=== PATIENT | female | born 1935 | race Caucasian/White ===

== ENCOUNTER 2016-08-12 14:22 | Emergency (ER) | payer OTHER ==
--- NOTE | 2016-08-12 15:00 | Diag Imaging Result Document ---
PROCEDURE NAME: CHEST-2 VIEWS - 08/12/2016 CHEST, TWO VIEWS: INDICATION: Altered mental status. COMPARISON: 10/27/2015. FINDINGS: The cardiomediastinal silhouette is stable. There are calcified hilar lymph nodes and granulomata. There is pulmonary emphysema. The pulmonary vasculature is not congested. There are no acute infiltrates or effusions. IMPRESSION: Stable chest. No acute abnormalities.
[2016-08-12 15:04] LABS: BE 4.2 mmoll (-3.0-3.0); BLOOD TYPE ARTERIAL; DRAW SITE L RADIAL; METHB 1.3 % (0.0-1.5); O2(CT) 19.2 mL/dL (15.0-23.0); PCO2(98.6) 40 mmHg (35-45); PO2(98.6) 66 mmHg (60-100); SAMPLE BLOOD; THB 14.9 g/dL (11.5-17.4); pH(98.6) 7.46 (7.35-7.45)
[2016-08-12 15:08] LABS: MODALITY CANNULA
[2016-08-12 15:09] LABS: ALLEN TEST YES
[2016-08-12 15:38] LABS: MANUAL DIFF NEEDED? NO
[2016-08-12 15:40] LABS: BASO% 0.3 % (0.0-0.8); EOS# 0.12 X1000 (0.0-0.7); EOS% 1.1 % (0.0-10.0); HEMATOCRIT 42.1 % (37.0-47.0); HEMOGLOBIN 14.5 g/dL (12.0-16.0); IMM GRAN# 0.02 X1000 (0.0-0.04); IMM GRAN% 0.2 % (0.0-0.5); LYMPH# 1.67 X1000 (1.2-3.4); LYMPH% 14.8 % (20.5-51.1); MCH 30.5 PG (27-31); MCHC 34.4 g/dL (33-37); MCV 88.4 FL (81-99); MONO# 0.59 X1000 (0.11-0.59); MONO% 5.2 % (1.7-9.3); MPV 9.8 FL (7.4-10.4); NEUT% 78.4 % (42.2-75.2); PLT 203 X1000 (130-400); RBC 4.76 XMIL (4.2-5.4)
[2016-08-12 15:45] LABS: INR 1.12 (0.86-1.15); PROTIME 14.7 Seconds (12.1-15.5)
[2016-08-12 15:46] LABS: PTT PL 37.9 Seconds (22.6-43.9)
[2016-08-12 15:51] LABS: AGAP 11; ALBUMIN 3.8 g/dL (3.5-5.0); ALKALINE PHOSPHATASE 112 U/L (32-104); BUN 9 mg/dL (8-22); CALCIUM 9.4 mg/dL (8.8-10.2); CHLORIDE 100 mmol/L (98-107); COSMO 273; GOT 15 U/L (10-30); GPT 10 U/L (10-36); POTASSIUM 3.3 mmol/L (3.5-5.1); SODIUM 137 mmol/L (136-145); TCO2 27 mmol/L (25-35); TOTAL PROTEIN 6.6 g/dL (6.3-8.3)
--- NOTE | 2016-08-12 15:55 | PROVIDER DOCUMENTATION ---
HPI-General Adult - General Source: family - History of Present Illness -Gen Adult Nature of Presenting Problems: Pt is 80 y/o F presents to the ED with AMS. Pt's family states Pt has been acting different. Pt's family states Pt has dementia. Pt's family states Pt has been hallucinating. Pt's family states Pt has F. Pt's family states Pt recently started Macrobid. Location of Pain/Injury: reports: generalized Pain Radiation: reports: no radiation Quality of Pain: reports: none Severity: reports: mild Onset/Duration: reports: unsure Timing: reports: still present, intermittent Context/Activities at Onset: reports: light activity Modifying Factors: improves with: nothing Associated Symptoms: denies: anxiety, arm pain, back/neck pain, chest pain, constipation, cough, dizziness, fatigue, fever/chills, genitourinary problems, loss of appetite, muscle aches, sinus congestion/drainage, nausea, shortness of breath, syncope, vomiting, weakness, trouble walking Similar Symptoms Previously?: Yes Recently seen or treated by another doctor?: No <Carmen Parry - Last Filed: 08/12/16 17:15> <Katelyn Boyd - Last Filed: 08/12/16 17:23> - General Chief Complaint: Altered Mental Status Stated Complaint: AMS/FEVER Time Seen by Provider: 08/12/16 15:02 Allergies/Adverse Reactions: Patient Allergies Allergy/AdvReac Type Severity Reaction Status Date / Time morphine AdvReac Unknown Verified 08/12/16 14:44 Home Medications: Carvedilol 3.125 mg PO BID 11/12/14 Oxybutynin Chloride [Oxybutynin Chloride ER] 15 mg PO DAILY 11/12/14 Pravastatin Sodium 40 mg PO QHS 11/12/14 Isosorbide Mononitrate [Isosorbide Mononitrate ER] 30 mg PO DAILY 11/21/14 Quetiapine Fumarate [Seroquel] 25 mg PO QHS 01/28/15 Memantine HCl [Namenda Xr] 21 mg PO DAILY 05/18/15 Rivastigmine Tartrate [Rivastigmine] 1.5 mg PO BID 08/11/15 Escitalopram [Lexapro] 10 mg PO DAILY 08/12/16 Esomeprazole [Nexium] 40 mg PO DAILY 08/12/16 Tramadol [Ultram] 50 mg PO BID 08/12/16 Review of Systems - Adult - REVIEW OF SYSTEMS - ADULT Constitutional: reports: fever. denies: chills Eyes: denies: blurred vision, double vision Ears, Nose, Mouth & Throat: denies: ear pain, nose pain, throat pain Cardiovascular: denies: chest pain, irregular heart rate, palpitations Respiratory: denies: cough, shortness of breath, wheezing Gastrointestinal: denies: abdominal pain, diarrhea, nausea, vomiting Genitourinary: denies: dysuria, hematuria Musculoskeletal: denies: bone pain, joint pain, neck pain Integumentary: denies: hives, itching Neurological: reports: other (AMS). denies: dizziness/vertigo, headache/ migraines Psychiatric: denies: anxiety, alcohol/drug dependence, depression Endocrine: reports: no symptoms reported Hematologic/Lymphatic: reports: no symptoms reported Allergic/Immunologic: reports: no symptoms reported All Other Systems: Reviewed and Negative <Carmen Parry - Last Filed: 08/12/16 17:15> Past History - Adult - PAST MEDICAL HISTORY-ADULT Review of Records: reports: Nursing Assessment Review, Medications Reviewed, Social history reviewed & non-contributory. Major Childhood Illnesses: reports: denies history Cardiovascular: reports: CAD, HTN, hyperlipidemia, PA (x2) Respiratory: reports: COPD Gastrointestinal: reports: GERD Obstetrical/Gynecological: reports: denies history Genitourinary: reports: denies history Musculoskeletal: reports: denies history Neurological: reports: Alzheimer's, dementia Endocrine/Immune: reports: denies history Other Conditions: reports: denies history - PRIOR SURGERIES/PROCEDURES Surgical/Procedure History: reports: cardiac stent (x 2), hysterectomy, hernia repair - IMMUNIZATION STATUS Childhood Immunizations: See Nurse Assessment Flu Vaccine: See Nurse Assessment - FAMILY HISTORY Family History: reviewed, not pertinent - SOCIAL HISTORY Smoking: quit greater than 1 year, cigarettes Provider spent 3-5 mins advising pt. on dangers of tobacco.: Discussed manners to quit use, and f/u contacts for add'l counseling. Substance Use: denies Living Situation: family <Carmen Parry - Last Filed: 08/12/16 17:15> Physical Exam-General - PHYSICAL EXAM-ADULT Initial Vital Signs Reviewed: Yes - CONSTITUTIONAL General Appearance: appears well, alert, no apparent distress - EYES Eyes: PERRL/EOMI, pink conjunctivae - HEAD, EARS, NOSE, MOUTH & THROAT HENMT: normocephalic/atraumatic, moist mucous membranes, normal ENT inspection - NECK Neck: non-tender, full range of motion, supple, normal inspection - RESPIRATORY Respiratory: chest non-tender, lungs clear, normal breath sounds - CARDIOVASCULAR Cardiovascular: normal peripheral pulses, regular rate, rhythm, no edema - GASTROINTESTINAL (ABDOMEN) Abdominal Exam: normal bowel sounds, non tender, soft - LYMPHATIC Lymphatic: no adenopathy - MUSCULOSKELETAL Back Exam: normal inspection, no CVA tenderness, no vertebral tenderness Extremity: normal range of motion, non-tender, normal gait - SKIN Integumentary: normal color, normal turgor, warm/dry - PSYCHIATRIC Psych/Mental Status: normal mood/affect, normal thought content, normal thought process, oriented x 3 <Carmen Parry - Last Filed: 08/12/16 17:15> Progress - PLAN OF CARE/RESULTS Progress/Plan/Lab Results: Laboratory Tests 08/12/16 08/12/16 08/12/16 14:50 15:00 15:00 WBC RBC Hgb Hct MCV MCH MCHC RDW Std Deviation Plt Count MPV Immature Gran % (Auto) Neut % (Auto) Lymph % (Auto) Andrews % (Auto) Eos % (Auto) Baso % (Auto) Immature Gran # (Auto) Neut # (Auto) Lymph # (Auto) Andrews # (Auto) Eos # (Auto) Baso # (Auto) PT INR APTT (Factor Assay) Specimen Type ARTERIAL Sample Site L RADIAL pH 7.46 H pCO2 40 pO2 66 HCO3 28.0 H Base Excess 4.2 H Oxyhemoglobin 91.9 L ABG O2 Sat (Calculated) 19.2 ABG O2 Saturation 96.0 ABG Carboxyhemoglobin 3.00 H ABG Methemoglobin 1.3 Oliver Test YES A-a O2 Difference 84.0 Total Hemoglobin 14.9 Lactate 1.00 Liter Flow 2.0 Blood Gas Modality CANNULA FiO2 % 28.0 Sodium 137 Potassium 3.3 L Chloride 100 Carbon Dioxide 27 Anion Gap 11 BUN 9 Creatinine 0.7 Estimated GFR/1.73 m2 > 60 BUN/Creatinine Ratio 13 Glucose 103 Calculated Osmolality 273 Calcium 9.4 Total Bilirubin 0.60 AST 15 ALT 10 Alkaline Phosphatase 112 H Troponin T < 0.010 Total Protein 6.6 Albumin 3.8 Globulin 3.0 Albumin/Globulin Ratio 1.0 Plasma/Serum Ethyl Alc 08/12/16 08/12/16 08/12/16 15:00 15:00 15:00 WBC 11.31 H RBC 4.76 Hgb 14.5 Hct 42.1 MCV 88.4 MCH 30.5 MCHC 34.4 RDW Std Deviation 13.1 Plt Count 203 MPV 9.8 Immature Gran % (Auto) 0.2 Neut % (Auto) 78.4 H Lymph % (Auto) 14.8 L Andrews % (Auto) 5.2 Eos % (Auto) 1.1 Baso % (Auto) 0.3 Immature Gran # (Auto) 0.02 Neut # (Auto) 8.88 H Lymph # (Auto) 1.67 Andrews # (Auto) 0.59 Eos # (Auto) 0.12 Baso # (Auto) 0.03 PT 14.7 INR 1.12 APTT (Factor Assay) 37.9 Specimen Type Sample Site pH pCO2 pO2 HCO3 Base Excess Oxyhemoglobin ABG O2 Sat (Calculated) ABG O2 Saturation ABG Carboxyhemoglobin ABG Methemoglobin Oliver Test A-a O2 Difference Total Hemoglobin Lactate Liter Flow Blood Gas Modality FiO2 % Sodium Potassium Chloride Carbon Dioxide Anion Gap BUN Creatinine Estimated GFR/1.73 m2 BUN/Creatinine Ratio Glucose Calculated Osmolality Calcium Total Bilirubin AST ALT Alkaline Phosphatase Troponin T Total Protein Albumin Globulin Albumin/Globulin Ratio Plasma/Serum Ethyl Alc Orders Category Date Time Status Cardiac Monitoring DIRECTED Care 08/12/16 14:28 Active Finger Stick Blood Sugar (ED) DIRECTED Care 08/12/16 14:28 Active Oxygen Therapy- ED Nursing DIRECTED Care 08/12/16 14:28 Active Saline Loc NOW Care 08/12/16 14:28 Active CHEST-2 VIEWS [RAD] Stat Exams 08/12/16 14:28 Draft ABG [RESP] Routine Lab 08/12/16 14:50 Completed ALCOHOL BLOOD Stat Lab 08/12/16 15:00 Completed CBC WITH ELECTRONIC DIFF [HEME] Stat Lab 08/12/16 15:00 Completed COMPREHENSIVE METABOLIC PANEL [CHEM] Stat Lab 08/12/16 15:00 Completed LACTATE, PLASMA [CHEM] Stat Lab 08/12/16 15:00 Received PR[address]IME WITH INR PL [COAG] Stat Lab 08/12/16 15:[address] [COAG] Stat Lab 08/12/16 15:00 Completed TROPONIN T Stat Lab 08/12/16 15:[address] W/POSS RFLX CULT [URINALYSIS] Stat Lab 08/12/16 14:32 Ordered URINE DRUG SCREEN PL Stat Lab 08/12/16 14:32 Ordered Pulse Oximetry Stat Oth 08/12/16 14:28 Active EKG [EKG] Stat Ther 08/12/16 14:28 Ordered Vital Signs - 24 hr 08/12/16 14:39 Temperature 100.2 F H Pulse Rate 73 Respiratory 18 Rate Blood Pressure 127/059 O2 Sat by Pulse 97 Oximetry Laboratory Tests 08/12/16 08/12/16 08/12/16 14:32 14:50 15:00 WBC RBC Hgb Hct MCV MCH MCHC RDW Std Deviation Plt Count MPV Immature Gran % (Auto) Neut % (Auto) Lymph % (Auto) Andrews % (Auto) Eos % (Auto) Baso % (Auto) Immature Gran # (Auto) Neut # (Auto) Lymph # (Auto) Andrews # (Auto) Eos # (Auto) Baso # (Auto) PT INR APTT (Factor Assay) Specimen Type ARTERIAL Sample Site L RADIAL pH 7.46 H pCO2 40 pO2 66 HCO3 28.0 H Base Excess 4.2 H Oxyhemoglobin 91.9 L ABG O2 Sat (Calculated) 19.2 ABG O2 Saturation 96.0 ABG Carboxyhemoglobin 3.00 H ABG Methemoglobin 1.3 Oliver Test YES A-a O2 Difference 84.0 Total Hemoglobin 14.9 Lactate 1.00 Liter Flow 2.0 Blood Gas Modality CANNULA FiO2 % 28.0 Sodium 137 Potassium 3.3 L Chloride 100 Carbon Dioxide 27 Anion Gap 11 BUN 9 Creatinine 0.7 Estimated GFR/1.73 m2 > 60 BUN/Creatinine Ratio 13 Glucose 103 Calculated Osmolality 273 Calcium 9.4 Total Bilirubin 0.60 AST 15 ALT 10 Alkaline Phosphatase 112 H Troponin T Total Protein 6.6 Albumin 3.8 Globulin 3.0 Albumin/Globulin Ratio 1.0 Plasma Lactate Urine Source Urine Color Urine Clarity Urine pH Ur Specific [place] Urine Protein Urine Ketones Urine Blood Urine Nitrite Urine Bilirubin Urine Urobilinogen Urine Microscopic RBC Urine WBC Urine Microscopic WBC Ur Epithelial Cells Urine Bacteria Urine Glucose Urine Opiates Screen NONE DETECTED Ur Oxycodone Screen NONE DETECTED Urine Methadone Screen NONE DETECTED Ur Barbituates Screen NONE DETECTED Ur Tricyclics Screen NONE DETECTED Ur Phencyclidine Scrn NONE DETECTED Ur Amphetamines Screen NONE DETECTED U Methamphetamines Scrn NONE DETECTED Urine MDMA Screen NONE DETECTED U Benzodiazepines Scrn PRESUMPTIVE POSITIVE A Urine Cocaine Screen NONE DETECTED U Cannabinoids Screen NONE DETECTED Plasma/Serum Ethyl Alc 08/12/16 08/12/16 08/12/16 15:00 15:00 15:00 WBC RBC Hgb Hct MCV MCH MCHC RDW Std Deviation Plt Count MPV Immature Gran % (Auto) Neut % (Auto) Lymph % (Auto) Andrews % (Auto) Eos % (Auto) Baso % (Auto) Immature Gran # (Auto) Neut # (Auto) Lymph # (Auto) Andrews # (Auto) Eos # (Auto) Baso # (Auto) PT INR APTT (Factor Assay) Specimen Type Sample Site pH pCO2 pO2 HCO3 Base Excess Oxyhemoglobin ABG O2 Sat (Calculated) ABG O2 Saturation ABG Carboxyhemoglobin ABG Methemoglobin Oliver Test A-a O2 Difference Total Hemoglobin Lactate Liter Flow Blood Gas Modality FiO2 % Sodium Potassium Chloride Carbon Dioxide Anion Gap BUN Creatinine Estimated GFR/1.73 m2 BUN/Creatinine Ratio Glucose Calculated Osmolality Calcium Total Bilirubin AST ALT Alkaline Phosphatase Troponin T < 0.010 Total Protein Albumin Globulin Albumin/Globulin Ratio Plasma Lactate 1.1 Urine Source Urine Color Urine Clarity Urine pH Ur Specific [place] Urine Protein Urine Ketones Urine Blood Urine Nitrite Urine Bilirubin Urine Urobilinogen Urine Microscopic RBC Urine WBC Urine Microscopic WBC Ur Epithelial Cells Urine Bacteria Urine Glucose Urine Opiates Screen Ur Oxycodone Screen Urine Methadone Screen Ur Barbituates Screen Ur Tricyclics Screen Ur Phencyclidine Scrn Ur Amphetamines Screen U Methamphetamines Scrn Urine MDMA Screen U Benzodiazepines Scrn Urine Cocaine Screen U Cannabinoids Screen Plasma/Serum Ethyl Alc 08/12/16 08/12/16 08/12/16 15:00 15:00 16:20 WBC 11.31 H RBC 4.76 Hgb 14.5 Hct 42.1 MCV 88.4 MCH 30.5 MCHC 34.4 RDW Std Deviation 13.1 Plt Count 203 MPV 9.8 Immature Gran % (Auto) 0.2 Neut % (Auto) 78.4 H Lymph % (Auto) 14.8 L Andrews % (Auto) 5.2 Eos % (Auto) 1.1 Baso % (Auto) 0.3 Immature Gran # (Auto) 0.02 Neut # (Auto) 8.88 H Lymph # (Auto) 1.67 Andrews # (Auto) 0.59 Eos # (Auto) 0.12 Baso # (Auto) 0.03 PT 14.7 INR 1.12 APTT (Factor Assay) 37.9 Specimen Type Sample Site pH pCO2 pO2 HCO3 Base Excess Oxyhemoglobin ABG O2 Sat (Calculated) ABG O2 Saturation ABG Carboxyhemoglobin ABG Methemoglobin Oliver Test A-a O2 Difference Total Hemoglobin Lactate Liter Flow Blood Gas Modality FiO2 % Sodium Potassium Chloride Carbon Dioxide Anion Gap BUN Creatinine Estimated GFR/1.73 m2 BUN/Creatinine Ratio Glucose Calculated Osmolality Calcium Total Bilirubin AST ALT Alkaline Phosphatase Troponin T Total Protein Albumin Globulin Albumin/Globulin Ratio Plasma Lactate Urine Source CATH Urine Color BAYLEE Urine Clarity SLIGHTLY CLOUDY A Urine pH 6.5 Ur Specific [place] 1.010 Urine Protein TRACE A Urine Ketones TRACE Urine Blood TRACE Urine Nitrite NEGATIVE Urine Bilirubin NEGATIVE Urine Urobilinogen NORMAL Urine Microscopic RBC <10 Urine WBC 2+ A Urine Microscopic WBC 10-20 A Ur Epithelial Cells <10 Urine Bacteria 2+ Urine Glucose NEGATIVE Urine Opiates Screen Ur Oxycodone Screen Urine Methadone Screen Ur Barbituates Screen Ur Tricyclics Screen Ur Phencyclidine Scrn Ur Amphetamines Screen U Methamphetamines Scrn Urine MDMA Screen U Benzodiazepines Scrn Urine Cocaine Screen U Cannabinoids Screen Plasma/Serum Ethyl Alc - XRAY 1 XRAY: Bilateral XRAY Study: Chest Impression: Normal XRAY Interpretation: no acute disease <Carmen Parry - Last Filed: 08/12/16 17:15> - PLAN OF CARE/RESULTS Progress/Plan/Lab Results: Discussed results and plan of care with patient. Patient agrees with plan and verbalizes understanding. Vital Signs Temp Pulse Resp BP Pulse Ox 08/12/16 14:39 100.2 F H 73 18 127/059 97 morphine Adverse Reaction (Verified 08/12/16 14:44) Unknown Carvedilol 3.125 mg PO BID 11/12/14 Oxybutynin Chloride [Oxybutynin Chloride ER] 15 mg PO DAILY 11/12/14 Pravastatin Sodium 40 mg PO QHS 11/12/14 Isosorbide Mononitrate [Isosorbide Mononitrate ER] 30 mg PO DAILY 11/21/14 Quetiapine Fumarate [Seroquel] 25 mg PO QHS 01/28/15 Memantine HCl [Namenda Xr] 21 mg PO DAILY 05/18/15 Acetaminophen [Tylenol] 500 mg PO Q6H PRN PRN #30 tablet 08/05/15 Rivastigmine Tartrate [Rivastigmine] 1.5 mg PO BID 08/11/15 Polyethylene Glycol 3350 [Miralax] 17 gm PO DAILY #30 powd.pack 08/14/15 Sennosides/Docusate Sodium [Senokot-S Tablet] 1 each PO QHS #30 tablet 08/14/15 Alprazolam [Xanax] 0.25 mg PO TID #90 tablet 11/02/15 Amlodipine [Norvasc] 10 mg PO DAILY #30 tablet 11/02/15 LISINOpril/HCTZ [Prinzide 20/12.5MG] 1 each PO DAILY #30 tablet 11/02/15 Oxycodone HCl/Acetaminophen [Oxycodone-Acetaminophen 5-325] 1 each PO Q6H PRN PRN #40 tablet 11/02/15 Rivaroxaban [Xarelto] 10 mg PO DAILY #35 tablet 11/02/15 Escitalopram [Lexapro] 10 mg PO DAILY 08/12/16 Esomeprazole [Nexium] 40 mg PO DAILY 08/12/16 Tramadol [Ultram] 50 mg PO BID 08/12/16 Laboratory 08/12/16 08/12/16 08/12/16 16:20 15:00 15:00 WBC 11.31 H RBC 4.76 Hgb 14.5 Hct 42.1 MCV 88.4 MCH 30.5 MCHC 34.4 RDW Std Deviation 13.1 Plt Count 203 MPV 9.8 Immature Gran % (Auto) 0.2 Neut % (Auto) 78.4 H Lymph % (Auto) 14.8 L Andrews % (Auto) 5.2 Eos % (Auto) 1.1 Baso % (Auto) 0.3 Immature Gran # (Auto) 0.02 Neut # (Auto) 8.88 H Lymph # (Auto) 1.67 Andrews # (Auto) 0.59 Eos # (Auto) 0.12 Baso # (Auto) 0.03 PT 14.7 INR 1.12 APTT (Factor Assay) 37.9 Specimen Type Sample Site pH pCO2 pO2 HCO3 Base Excess Oxyhemoglobin ABG O2 Sat (Calculated) ABG O2 Saturation ABG Carboxyhemoglobin ABG Methemoglobin Oliver Test A-a O2 Difference Total Hemoglobin Lactate Liter Flow Blood Gas Modality FiO2 % Sodium Potassium Chloride Carbon Dioxide Anion Gap BUN Creatinine Estimated GFR/1.73 m2 BUN/Creatinine Ratio Glucose Calculated Osmolality Calcium Total Bilirubin AST ALT Alkaline Phosphatase Troponin T Total Protein Albumin Globulin Albumin/Globulin Ratio Plasma Lactate Urine Source CATH Urine Color BAYLEE Urine Clarity SLIGHTLY CLOUDY A Urine pH 6.5 Ur Specific [place] 1.010 Urine Protein TRACE A Urine Ketones TRACE Urine Blood TRACE Urine Nitrite NEGATIVE Urine Bilirubin NEGATIVE Urine Urobilinogen NORMAL Urine Microscopic RBC <10 Urine WBC 2+ A Urine Microscopic WBC 10-20 A Ur Epithelial Cells <10 Urine Bacteria 2+ Urine Glucose NEGATIVE Urine Opiates Screen Ur Oxycodone Screen Urine Methadone Screen Ur Barbituates Screen Ur Tricyclics Screen Ur Phencyclidine Scrn Ur Amphetamines Screen U Methamphetamines Scrn Urine MDMA Screen U Benzodiazepines Scrn Urine Cocaine Screen U Cannabinoids Screen Plasma/Serum Ethyl Alc 08/12/16 08/12/16 08/12/16 15:00 15:00 15:00 WBC RBC Hgb Hct MCV MCH MCHC RDW Std Deviation Plt Count MPV Immature Gran % (Auto) Neut % (Auto) Lymph % (Auto) Andrews % (Auto) Eos % (Auto) Baso % (Auto) Immature Gran # (Auto) Neut # (Auto) Lymph # (Auto) Andrews # (Auto) Eos # (Auto) Baso # (Auto) PT INR APTT (Factor Assay) Specimen Type Sample Site pH pCO2 pO2 HCO3 Base Excess Oxyhemoglobin ABG O2 Sat (Calculated) ABG O2 Saturation ABG Carboxyhemoglobin ABG Methemoglobin Oliver Test A-a O2 Difference Total Hemoglobin Lactate Liter Flow Blood Gas Modality FiO2 % Sodium Potassium Chloride Carbon Dioxide Anion Gap BUN Creatinine Estimated GFR/1.73 m2 BUN/Creatinine Ratio Glucose Calculated Osmolality Calcium Total Bilirubin AST ALT Alkaline Phosphatase Troponin T < 0.010 Total Protein Albumin Globulin Albumin/Globulin Ratio Plasma Lactate 1.1 Urine Source Urine Color Urine Clarity Urine pH Ur Specific [place] Urine Protein Urine Ketones Urine Blood Urine Nitrite Urine Bilirubin Urine Urobilinogen Urine Microscopic RBC Urine WBC Urine Microscopic WBC Ur Epithelial Cells Urine Bacteria Urine Glucose Urine Opiates Screen Ur Oxycodone Screen Urine Methadone Screen Ur Barbituates Screen Ur Tricyclics Screen Ur Phencyclidine Scrn Ur Amphetamines Screen U Methamphetamines Scrn Urine MDMA Screen U Benzodiazepines Scrn Urine Cocaine Screen U Cannabinoids Screen Plasma/Serum Ethyl Alc 08/12/16 08/12/16 08/12/16 15:00 14:50 14:32 WBC RBC Hgb Hct MCV MCH MCHC RDW Std Deviation Plt Count MPV Immature Gran % (Auto) Neut % (Auto) Lymph % (Auto) Andrews % (Auto) Eos % (Auto) Baso % (Auto) Immature Gran # (Auto) Neut # (Auto) Lymph # (Auto) Andrews # (Auto) Eos # (Auto) Baso # (Auto) PT INR APTT (Factor Assay) Specimen Type ARTERIAL Sample Site L RADIAL pH 7.46 H pCO2 40 pO2 66 HCO3 28.0 H Base Excess 4.2 H Oxyhemoglobin 91.9 L ABG O2 Sat (Calculated) 19.2 ABG O2 Saturation 96.0 ABG Carboxyhemoglobin 3.00 H ABG Methemoglobin 1.3 Oliver Test YES A-a O2 Difference 84.0 Total Hemoglobin 14.9 Lactate 1.00 Liter Flow 2.0 Blood Gas Modality CANNULA FiO2 % 28.0 Sodium 137 Potassium 3.3 L Chloride 100 Carbon Dioxide 27 Anion Gap 11 BUN 9 Creatinine 0.7 Estimated GFR/1.73 m2 > 60 BUN/Creatinine Ratio 13 Glucose 103 Calculated Osmolality 273 Calcium 9.4 Total Bilirubin 0.60 AST 15 ALT 10 Alkaline Phosphatase 112 H Troponin T Total Protein 6.6 Albumin 3.8 Globulin 3.0 Albumin/Globulin Ratio 1.0 Plasma Lactate Urine Source Urine Color Urine Clarity Urine pH Ur Specific [place] Urine Protein Urine Ketones Urine Blood Urine Nitrite Urine Bilirubin Urine Urobilinogen Urine Microscopic RBC Urine WBC Urine Microscopic WBC Ur Epithelial Cells Urine Bacteria Urine Glucose Urine Opiates Screen NONE DETECTED Ur Oxycodone Screen NONE DETECTED Urine Methadone Screen NONE DETECTED Ur Barbituates Screen NONE DETECTED Ur Tricyclics Screen NONE DETECTED Ur Phencyclidine Scrn NONE DETECTED Ur Amphetamines Screen NONE DETECTED U Methamphetamines Scrn NONE DETECTED Urine MDMA Screen NONE DETECTED U Benzodiazepines Scrn PRESUMPTIVE POSITIVE A Urine Cocaine Screen NONE DETECTED U Cannabinoids Screen NONE DETECTED Plasma/Serum Ethyl Alc Orders Category Date Time Status Cardiac Monitoring DIRECTED Care 08/12/16 14:28 Active Finger Stick Blood Sugar (ED) DIRECTED Care 08/12/16 14:28 Active Oxygen Therapy- ED Nursing DIRECTED Care 08/12/16 14:28 Active Saline Loc NOW Care 08/12/16 14:28 Active CHEST-2 VIEWS [RAD] Stat Exams 08/12/16 14:28 Draft ABG [RESP] Routine Lab 08/12/16 14:50 Completed ALCOHOL BLOOD Stat Lab 08/12/16 15:00 Completed CBC WITH ELECTRONIC DIFF [HEME] Stat Lab 08/12/16 15:00 Completed COMPREHENSIVE METABOLIC PANEL [CHEM] Stat Lab 08/12/16 15:00 Completed LACTATE, PLASMA [CHEM] Stat Lab 08/12/16 15:00 Completed PR[address]IME WITH INR PL [COAG] Stat Lab 08/12/16 15:[address] [COAG] Stat Lab 08/12/16 15:00 Completed TROPONIN T Stat Lab 08/12/16 15:[address] W/POSS RFLX CULT [URINALYSIS] Stat Lab 08/12/16 16:20 Completed URINE CULTURE [RM] Routine Lab 08/12/16 17:08 [address]INE DRUG SCREEN PL Stat Lab 08/12/16 14:32 Completed CefTRIAXONE 1 GM/NS [Rocephin 1 gm/Ns] 50 ml Med 08/12/16 17:21 Active IV NOW Pulse Oximetry Stat Oth 08/12/16 14:28 Active EKG [EKG] Stat Ther 08/12/16 14:28 Ordered Laboratory Tests 08/12/16 08/12/16 08/12/16 14:32 14:50 15:00 WBC RBC Hgb Hct MCV MCH MCHC RDW Std Deviation Plt Count MPV Immature Gran % (Auto) Neut % (Auto) Lymph % (Auto) Andrews % (Auto) Eos % (Auto) Baso % (Auto) Immature Gran # (Auto) Neut # (Auto) Lymph # (Auto) Andrews # (Auto) Eos # (Auto) Baso # (Auto) PT INR APTT (Factor Assay) Specimen Type ARTERIAL Sample Site L RADIAL pH 7.46 H pCO2 40 pO2 66 HCO3 28.0 H Base Excess 4.2 H Oxyhemoglobin 91.9 L ABG O2 Sat (Calculated) 19.2 ABG O2 Saturation 96.0 ABG Carboxyhemoglobin 3.00 H ABG Methemoglobin 1.3 Oliver Test YES A-a O2 Difference 84.0 Total Hemoglobin 14.9 Lactate 1.00 Liter Flow 2.0 Blood Gas Modality CANNULA FiO2 % 28.0 Sodium 137 Potassium 3.3 L Chloride 100 Carbon Dioxide 27 Anion Gap 11 BUN 9 Creatinine 0.7 Estimated GFR/1.73 m2 > 60 BUN/Creatinine Ratio 13 Glucose 103 Calculated Osmolality 273 Calcium 9.4 Total Bilirubin 0.60 AST 15 ALT 10 Alkaline Phosphatase 112 H Troponin T Total Protein 6.6 Albumin 3.8 Globulin 3.0 Albumin/Globulin Ratio 1.0 Plasma Lactate Urine Source Urine Color Urine Clarity Urine pH Ur Specific [place] Urine Protein Urine Ketones Urine Blood Urine Nitrite Urine Bilirubin Urine Urobilinogen Urine Microscopic RBC Urine WBC Urine Microscopic WBC Ur Epithelial Cells Urine Bacteria Urine Glucose Urine Opiates Screen NONE DETECTED Ur Oxycodone Screen NONE DETECTED Urine Methadone Screen NONE DETECTED Ur Barbituates Screen NONE DETECTED Ur Tricyclics Screen NONE DETECTED Ur Phencyclidine Scrn NONE DETECTED Ur Amphetamines Screen NONE DETECTED U Methamphetamines Scrn NONE DETECTED Urine MDMA Screen NONE DETECTED U Benzodiazepines Scrn PRESUMPTIVE POSITIVE A Urine Cocaine Screen NONE DETECTED U Cannabinoids Screen NONE DETECTED Plasma/Serum Ethyl Alc 08/12/16 08/12/16 08/12/16 15:00 15:00 15:00 WBC RBC Hgb Hct MCV MCH MCHC RDW Std Deviation Plt Count MPV Immature Gran % (Auto) Neut % (Auto) Lymph % (Auto) Andrews % (Auto) Eos % (Auto) Baso % (Auto) Immature Gran # (Auto) Neut # (Auto) Lymph # (Auto) Andrews # (Auto) Eos # (Auto) Baso # (Auto) PT INR APTT (Factor Assay) Specimen Type Sample Site pH pCO2 pO2 HCO3 Base Excess Oxyhemoglobin ABG O2 Sat (Calculated) ABG O2 Saturation ABG Carboxyhemoglobin ABG Methemoglobin Oliver Test A-a O2 Difference Total Hemoglobin Lactate Liter Flow Blood Gas Modality FiO2 % Sodium Potassium Chloride Carbon Dioxide Anion Gap BUN Creatinine Estimated GFR/1.73 m2 BUN/Creatinine Ratio Glucose Calculated Osmolality Calcium Total Bilirubin AST ALT Alkaline Phosphatase Troponin T < 0.010 Total Protein Albumin Globulin Albumin/Globulin Ratio Plasma Lactate 1.1 Urine Source Urine Color Urine Clarity Urine pH Ur Specific [place] Urine Protein Urine Ketones Urine Blood Urine Nitrite Urine Bilirubin Urine Urobilinogen Urine Microscopic RBC Urine WBC Urine Microscopic WBC Ur Epithelial Cells Urine Bacteria Urine Glucose Urine Opiates Screen Ur Oxycodone Screen Urine Methadone Screen Ur Barbituates Screen Ur Tricyclics Screen Ur Phencyclidine Scrn Ur Amphetamines Screen U Methamphetamines Scrn Urine MDMA Screen U Benzodiazepines Scrn Urine Cocaine Screen U Cannabinoids Screen Plasma/Serum Ethyl Alc 08/12/16 08/12/16 08/12/16 15:00 15:00 16:20 WBC 11.31 H RBC 4.76 Hgb 14.5 Hct 42.1 MCV 88.4 MCH 30.5 MCHC 34.4 RDW Std Deviation 13.1 Plt Count 203 MPV 9.8 Immature Gran % (Auto) 0.2 Neut % (Auto) 78.4 H Lymph % (Auto) 14.8 L Andrews % (Auto) 5.2 Eos % (Auto) 1.1 Baso % (Auto) 0.3 Immature Gran # (Auto) 0.02 Neut # (Auto) 8.88 H Lymph # (Auto) 1.67 Andrews # (Auto) 0.59 Eos # (Auto) 0.12 Baso # (Auto) 0.03 PT 14.7 INR 1.12 APTT (Factor Assay) 37.9 Specimen Type Sample Site pH pCO2 pO2 HCO3 Base Excess Oxyhemoglobin ABG O2 Sat (Calculated) ABG O2 Saturation ABG Carboxyhemoglobin ABG Methemoglobin Oliver Test A-a O2 Difference Total Hemoglobin Lactate Liter Flow Blood Gas Modality FiO2 % Sodium Potassium Chloride Carbon Dioxide Anion Gap BUN Creatinine Estimated GFR/1.73 m2 BUN/Creatinine Ratio Glucose Calculated Osmolality Calcium Total Bilirubin AST ALT Alkaline Phosphatase Troponin T Total Protein Albumin Globulin Albumin/Globulin Ratio Plasma Lactate Urine Source CATH Urine Color BAYLEE Urine Clarity SLIGHTLY CLOUDY A Urine pH 6.5 Ur Specific Ironside 1.010 Urine Protein TRACE A Urine Ketones TRACE Urine Blood TRACE Urine Nitrite NEGATIVE Urine Bilirubin NEGATIVE Urine Urobilinogen NORMAL Urine Microscopic RBC <10 Urine WBC 2+ A Urine Microscopic WBC 10-20 A Ur Epithelial Cells <10 Urine Bacteria 2+ Urine Glucose NEGATIVE Urine Opiates Screen Ur Oxycodone Screen Urine Methadone Screen Ur Barbituates Screen Ur Tricyclics Screen Ur Phencyclidine Scrn Ur Amphetamines Screen U Methamphetamines Scrn Urine MDMA Screen U Benzodiazepines Scrn Urine Cocaine Screen U Cannabinoids Screen Plasma/Serum Ethyl Alc <Katelyn Boyd - Last Filed: 08/12/16 17:23> Departure <Carmen Parry - Last Filed: 08/12/16 17:15> - Departure Time of Disposition Order: 17:21 Certified Medical Emergency: Emergent <Katelyn Boyd - Last Filed: 08/12/16 17:23> - Departure DIAGNOSIS: UTI (urinary tract infection) Qualifiers: Urinary tract infection type: acute cystitis Hematuria presence: without hematuria Qualified Code(s): N30.00 - Acute cystitis without hematuria Disposition: HOME 01 Condition: Stable Additional Instructions: Follow up with primary care physician Take medications as directed Return to ED for any concerns or worsening of symptoms ED Follow Up Instructions: You have been treated by a care provider in the Emergency Department. These instructions are being provided to you so you can have an understanding of how to care for yourself upon discharge. Upon discharge from the Emergency Department, you are responsible for making arrangements for follow-up care by a physician of your choice. Take all prescribed medications as directed. Return to the Emergency Department immediately for any new or worsening symptoms. You may call the Physician Referral phone number at [phone] to obtain a list of Physicians who are taking new patients. Prescriptions: Sulfamethoxazole/Trimethoprim [Bactrim Ds Tablet] 1 each PO BID #14 tablet Referrals: Julia Jones CRNP [Primary Care Provider] - Attestation - Scribe Verification/Attestation Scribe:: Carmen Parry Acting as Scribe for:: Ricardo Velez Scribe documention review:: This chart was documented by a scribe and accurately reflects the service the provider performed and the decisions made by the provider. <Carmen Parry - Last Filed: 08/12/16 17:15> - Physician/ Mid-level Attestation Patient care was provided by Mid-level provider ([employer]/PA):: Yes Mid-level provider:: Katelyn Boyd Mid-level documentation review:: The Mid-level provider documentation, treatment plan and medical decision making was reviewed by the physician who agrees with all treatment and medical decision making by the MLP. The physician spent face to face time with patient:: Yes <Katelyn Boyd - Last Filed: 08/12/16 17:23> Physician Attestation
[2016-08-12 16:29] LABS: URINE SOURCE CATH
[2016-08-12 16:36] LABS: UR AMPHETAMINES QUAL NONE DETECTED (NONE DETECT); UR BARBITUATES QUAL NONE DETECTED (NONE DETECT); UR BENZODIAZEPIN QUAL PRESUMPTIVE POSITIVE (NONE DETECT); UR CANNABINOIDS QUAL NONE DETECTED (NONE DETECT); UR COCAINE QUAL NONE DETECTED (NONE DETECT); UR MDMA QUAL NONE DETECTED (NONE DETECT); UR METHADONE QUAL NONE DETECTED (NONE DETECT); UR METHAMPHETAMINE QUAL NONE DETECTED (NONE DETECT); UR OPIATES QUAL NONE DETECTED (NONE DETECT); UR OXYCODONE QUAL NONE DETECTED (NONE DETECT); UR PCP QUAL NONE DETECTED (NONE DETECT); UR TCA QUAL NONE DETECTED (NONE DETECT)
[2016-08-12 17:05] LABS: BILIRUBIN URINE NEGATIVE (NEGATIVE); BLOOD URINE TRACE (NEGATIVE); CLARITY SLIGHTLY CLOUDY (CLEAR); COLOR AMBER; GLUCOSE URINE NEGATIVE (NEGATIVE); LEUKOCYTES URINE 2+ (NEGATIVE); NITRITE URINE NEGATIVE (NEGATIVE); PH URINE 6.5; PROTEIN URINE TRACE mg/dL (NEGATIVE); UROBILINOGEN URINE NORMAL
[2016-08-12 17:07] LABS: URINE RBC <10 /HPF (<10)
[2016-08-12 17:08] LABS: URINE CULTURE PL NEEDED? YES; URINE EPITHELIAL CELLS <10 /HPF (<10)
[2016-08-12] MEDS ORDERED: ROCEPHIN 1 GM/NS 50 ML IV ONE (17:21)
[2016-08-12] MEDS ORDERED: TYLENOL PO ONE (17:23)
[2016-08-12 17:57] VITALS: BP 153/065
== END 2016-08-12 19:00 | disposition home or self-care (01) ==
LOC: P.ED 14:22
DX: N30.00 Acute cystitis without hematuria (principal); R41.82 Altered mental status, unspecified; R50.9 Fever, unspecified; I25.10 Atherosclerotic heart disease of native coronary artery without angina pectoris; I10 Essential (primary) hypertension; E78.5 Hyperlipidemia, unspecified; I25.2 Old myocardial infarction; J44.9 Chronic obstructive pulmonary disease, unspecified; Z79.899 Other long term (current) drug therapy; K21.9 Gastro-esophageal reflux disease without esophagitis; G30.9 Alzheimer's disease, unspecified; F02.80 Dementia in other diseases classified elsewhere, unspecified severity, without behavioral disturbance, psychotic disturbance, mood disturbance, and anxiety; Z95.5 Presence of coronary angioplasty implant and graft; Z87.891 Personal history of nicotine dependence
CPT/HCPCS: 71020; 80053; 81001; 82805; 83605; 84484; 85025; 85610; 85730; 87088; 93005; 96365; G0480; J0696

== ENCOUNTER 2016-12-12 09:10 | Inpatient (IN) ==
[2016-12-12] MEDS ORDERED: TYLENOL ONE (10:15)
[2016-12-12] MEDS ORDERED: TYLENOL PO ONE (10:20)
[2016-12-12 10:30] LABS: BILIRUBIN URINE NEGATIVE (NEGATIVE); BLOOD URINE 1+ (NEGATIVE); CLARITY CLEAR (CLEAR); COLOR YELLOW; GLUCOSE URINE NEGATIVE (NEGATIVE); LEUKOCYTES URINE 2+ (NEGATIVE); NITRITE URINE NEGATIVE (NEGATIVE); PROTEIN URINE TRACE mg/dL (NEGATIVE); SP GRAVITY URINE 1.015; UROBILINOGEN URINE NORMAL
[2016-12-12 10:39] LABS: URINE EPITHELIAL CELLS <10 /HPF (<10); URINE RBC <10 /HPF (<10); URINE WBC 20-40 /HPF (<10)
[2016-12-12 10:40] LABS: URINE CAST NONE SEEN /LPF; URINE CRYSTAL NONE SEEN /HPF; URINE CULTURE PL NEEDED? YES; URINE SMALL ROUND CELLS RENAL PRESENT; URINE SOURCE CLEAN CATCH
[2016-12-12 10:45] LABS: MANUAL DIFF NEEDED? NO
[2016-12-12 10:47] LABS: BASO% 0.2 % (0.0-0.8); EOS# 0.09 X1000 (0.0-0.7); EOS% 0.8 % (0.0-10.0); HEMATOCRIT 38.1 % (37.0-47.0); IMM GRAN# 0.02 X1000 (0.0-0.04); IMM GRAN% 0.2 % (0.0-0.5); LYMPH# 1.41 X1000 (1.2-3.4); LYMPH% 11.8 % (20.5-51.1); MCH 30.1 PG (27-31); MCHC 34.1 g/dL (33-37); MCV 88.2 FL (81-99); MONO# 1.47 X1000 (0.11-0.59); MONO% 12.4 % (1.7-9.3); MPV 9.2 FL (7.4-10.4); NEUT% 74.6 % (42.2-75.2); PLT 205 X1000 (130-400); RBC 4.32 XMIL (4.2-5.4)
--- NOTE | 2016-12-12 11:03 | Diag Imaging Result Document ---
PROCEDURE NAME: CHEST-2 VIEWS - 12/12/2016 FRONTAL AND LATERAL CHEST, TWO VIEWS: COMPARISON: 08/27/2016. FINDINGS: The lungs are mildly hyperexpanded. The heart is not enlarged. The vessels are not distended. No pleural effusions. Mild increased markings in the right lung. There are small calcified left hilar lymph nodes with calcified granulomata in the mid left lung. IMPRESSION: 1. Emphysema. 2. Small infiltrate in the mid right lung. 3. Prior granulomatous infection.
[2016-12-12 11:04] LABS: AGAP 14; ALBUMIN 3.8 g/dL (3.5-5.0); ALKALINE PHOSPHATASE 98 U/L (32-104); BUN 15 mg/dL (8-22); CALCIUM 9.3 mg/dL (8.8-10.2); CHLORIDE 96 mmol/L (98-107); COSMO 266; GOT 18 U/L (10-30); GPT 9 U/L (10-36); MAGNESIUM 2.1 mg/dL (1.5-2.7); POTASSIUM 3.6 mmol/L (3.5-5.1); SODIUM 132 mmol/L (136-145); TCO2 23 mmol/L (25-35); TOTAL PROTEIN 7.1 g/dL (6.3-8.3)
[2016-12-12 11:05] LABS: INR 1.17 (0.86-1.15); PROTIME 15.2 Seconds (12.1-15.5)
[2016-12-12 11:06] LABS: CK PROFILE 320 U/L (24-173); PTT PL 45.3 Seconds (22.6-43.9)
[2016-12-12] MEDS ORDERED: ROCEPHIN 1 GM/NS 1 GM/50 ML IVPB IV ONE (11:13)
[2016-12-12 11:19] LABS: CK INDEX 1.1 (0.0-2.5); CK-MB 3.64 ng/mL (0.0-5.0)
[2016-12-12] MEDS ORDERED: NS 500 ML IV ONE (11:31)
[2016-12-12] MEDS ORDERED: NS 1,000 ML ONE (11:32)
--- NOTE | 2016-12-12 11:35 | EKG Report ---
Test Performed on : 12/12/2016 10:26:31 AM Test Reason : CHEST PAIN Blood Pressure : / mmHG Vent. Rate : 081 BPM Atrial Rate : 081 BPM P-R Int : 172 ms QRS Dur : 082 ms QT Int : 382 ms P-R-T Axes : 063 014 024 degrees QTc Int : 443 ms Sinus rhythm. with occasional premature ventricular complexes. Otherwise normal ECG When compared with ECG of 24-AUG-2016 11:17, premature ventricular complexes. are now present Nonspecific T wave abnormality no longer evident in Lateral leads Unconfirmed Result
[2016-12-12] MEDS: NS 1,000 ML IV ONE ×2 (13:20→16:44)
[2016-12-12] MEDS ORDERED: NS 1,000 ML IV ONE (14:15)
[2016-12-12] MEDS: DUONEB (A & A) INH SCH ×3 (15:00→22:50)
[2016-12-12] MEDS ORDERED: BLISTEX MEDICATED BERRY LIP BALM TOP PRN (16:30)
[2016-12-12] MEDS: ZITHROMAX 500 MG/NS 500 MG/250 ML IVPB IV SCH (16:45)
[2016-12-12] MEDS: TORADOL IV PRN (16:46)
[2016-12-12] MEDS: NS 1,000 ML IV SCH (16:54)
--- NOTE | 2016-12-12 18:10 | HISTORY AND PHYSICAL ---
PRIMARY CARE PHYSICIAN: MONIK John at [facility]. CHIEF COMPLAINT: Fever for the past 2-3 days with shortness of breath. Was seen at a walk-in clinic 2 days ago with a normal chest x-ray at that time. HISTORY OF PRESENTING ILLNESS: This is an 81-year-old female who presents to [facility] to the ER with complaints of fever for the past 2-3 days, increased shortness of breath. Daughter at bedside states that they were seen at a walk-in clinic approximately 2 days ago and discharged home with a normal chest x-ray. Since that time, she has continued to have a low grade fever, shortness of breath, increased confusion. On arrival, she had a temperature of a 100.5 degrees, with an O2 saturation of 85% on room air, a urinalysis that showed negative nitrites, but 2+ white blood cells, and 1+ bacteria, a sodium of 132. ProBNP of 1282. Approximately 30 minutes ago her blood pressure dropped to 85/45, and she is currently getting a normal saline bolus #2 and will be admitted to the intensive care unit. Her chest x-ray also showed a small infiltrate in the mid right lung. So she will be admitted for further evaluation and treatment. It is noted that the patient has a bruise to her right eye and temporal area. The patient's daughter states that she attempted to get up out of her chair last week and walked and fell, hitting her right eye. No other injury was noted at that time. PAST MEDICAL HISTORY: COPD, coronary artery disease, hypertension, dyslipidemia, GERD, dementia and a diastolic CHF. PAST SURGICAL HISTORY: PCI placement, hysterectomy, hernia repair and a hip fracture repair. FAMILY HISTORY: Noncontributory. SOCIAL HISTORY: She currently lives with family. Denies any tobacco, alcohol, or illicit drug use. ALLERGIES: Morphine. HOME MEDICATIONS: A current list of her home medications will be obtained and we will restart those as appropriate. LABORATORY DATA: Showed a white blood cell count of 11.90, hemoglobin 13, hematocrit 38.1, platelets 205,000, PT and INR of 15.2 and 1.17, a sodium of 132, potassium 3.6, chloride 96, CO2 23, BUN of 15, creatinine 0.7, glucose 108, magnesium 2.1. Creatine kinase was 320, with a CK-MB of 3.64 with a negative troponin of less than 0.010, proBNP of 1282. Urinalysis showed negative nitrites, 2+ white blood cells, and 1+ bacteria. Influenza A and B were both negative. DIAGNOSTICS: Chest x-ray showed emphysema, a small infiltrate in the mid right lung and a prior granulomatous infection. EKG showed sinus rhythm with an occasional PVC at 81. REVIEW OF SYSTEMS: She was positive for a subjective fever, chills. Denied any dizziness, blurred vision, chest pain. She had a nonproductive cough, shortness of breath. Denies any abdominal pain, constipation, diarrhea, burning or hurting with urination. PHYSICAL EXAMINATION: VITAL SIGNS: On arrival shows a temperature of 100.5, pulse 81, respirations 16, blood pressure was 152/73, saturating 85% on room air. Again, her blood pressure began dropping. She received 2 L total of normal saline. Blood pressure now is up to 112/51. At the lowest point it was 85/45. She is saturating 92-94% on 2 L via nasal cannula. GENERAL: This is an 81-year-old female lying in the bed, unable to answer all questions. Information obtained from daughter and medical record. HEENT: Again, there is a yellow bruise to her right temporal area. Otherwise, normocephalic. Atraumatic. Pupils appear equal, round, reactive to light. Extraocular movements are intact. Oropharynx and nares are clear. NECK: Supple. LUNGS: With some rales at bilateral bases. Equal lung expansion and chest wall movement noted. O2 via nasal cannula currently in use. HEART: Regular rate and rhythm. No murmurs, rubs, or gallops. ABDOMEN: Soft, nontender, nondistended. Bowel sounds are present x4 quadrants. EXTREMITIES: No clubbing, cyanosis, or edema. NEUROLOGICAL: The cranial nerves 2-12 appear grossly intact. ASSESSMENT: 1. Acute respiratory failure. 2. Right middle lobe pneumonia. 3. Hypotension. 4. Hyponatremia. 5. Urinary tract infection. PLAN: She is being admitted to the intensive care unit. Placed on O2 per protocol. Telemetry. Clear liquid diet. Urine culture will be obtained. She will continue her normal saline bolus until completion, and then will have normal saline at 75 as we will go a little gentler due to her history of diastolic congestive heart failure. She will be on Rocephin 1 gram IV q.24 hours, Zithromax 500 mg IV q.24 hours, albuterol and Atrovent nebulizer q.4 hours. Recheck a CBC and a BMP in the a.m. Dictated by MONIK Rascon for Ryan Sr MD cc: MONIK Rascon MD Anna M. Dumas, CRNP
[2016-12-12] MEDS ORDERED: CALMOSEPTINE OINTMENT TOP PRN (19:19)
[2016-12-13] MEDS: TYLENOL PO PRN ×2 (00:57→09:11)
[2016-12-13] MEDS: DUONEB (A & A) INH SCH ×6 (02:45→23:09)
[2016-12-13 06:22] LABS: MANUAL DIFF NEEDED? NO
[2016-12-13 06:27] LABS: BASO% 0.3 % (0.0-0.8); EOS# 0.04 X1000 (0.0-0.7); EOS% 0.4 % (0.0-10.0); HEMOGLOBIN 12.7 g/dL (12.0-16.0); IMM GRAN# 0.03 X1000 (0.0-0.04); IMM GRAN% 0.3 % (0.0-0.5); LYMPH# 1.13 X1000 (1.2-3.4); LYMPH% 10.1 % (20.5-51.1); MCH 30.4 PG (27-31); MCHC 34.3 g/dL (33-37); MCV 88.5 FL (81-99); MONO# 1.35 X1000 (0.11-0.59); MONO% 12.1 % (1.7-9.3); MPV 9.6 FL (7.4-10.4); NEUT% 76.8 % (42.2-75.2); PLT 201 X1000 (130-400); RBC 4.18 XMIL (4.2-5.4)
[2016-12-13] MEDS: NS 1,000 ML IV SCH ×3 (06:30→20:27)
[2016-12-13 06:39] LABS: AGAP 15; BUN 9 mg/dL (8-22); CALCIUM 9.1 mg/dL (8.8-10.2); CHLORIDE 101 mmol/L (98-107); COSMO 273; POTASSIUM 3.2 mmol/L (3.5-5.1); SODIUM 137 mmol/L (136-145); TCO2 21 mmol/L (25-35)
[2016-12-13] MEDS ORDERED: KLOR-CON PO ONE (08:05)
[2016-12-13] MEDS: TORADOL IV PRN ×3 (09:10→22:45)
--- NOTE | 2016-12-13 10:19 | PROGRESS NOTE ---
DATE: 12/13/2016 SUBJECTIVE: Family member at the bedside, her daughter. This patient feels a little bit better. She is tolerating p.o. Her oxygen saturation is 92 without oxygen. She is not having any kind of respiratory distress. OBJECTIVE: Vital Signs: Temperature 99.6 degrees, pulse 92, respiratory rate on the monitor of 20, blood pressure 134/62, oxygen saturation 97% on 2 L of nasal cannula. HEENT: Head normocephalic. No trauma. PERRLA. Neck: Supple. No JVD. No masses. Central trachea. Lungs: Clear to auscultation. Bilateral rales at the bases. Cardiovascular: RRR. Systolic murmur. Abdomen: Soft, nontender, nondistended. No hepatosplenomegaly. Extremities: No edema. No clubbing. No cyanosis. Neurological Examination: The patient is alert and oriented x2. This patient has a baseline dementia for the past 2-1/2 years. Laboratory: WBC 11.1, hemoglobin 12.7, hematocrit 37, platelets 201,000. Sodium 137, potassium 3.2, chloride 101, bicarbonate 21, BUN 9, creatinine 0.5, glucose 101. Chest x-ray dated 12/12/2016, impression emphysema, small infiltrate in the mid right lung, prior granulomatosis infection. ASSESSMENT AND PLAN: 1. Acute respiratory failure, resolved. This patient is not complaining of shortness of breath at this moment. She is not having any respiratory distress. Oxygen saturation is a little bit more stable. Continue with the same management. 2. Right middle lobe pneumonia. This patient has been placed on ceftriaxone and azithromycin. We will continue with these antibiotics and I will monitor daily CBC and CMP. 3. Hypertension. The blood pressure is stable right now. 4. Urinary tract infection. This patient is on ceftriaxone. Continue with the same management. 5. Hyponatremia, resolved. 6. Chronic obstructive pulmonary disease, not in exacerbation. 7. History of coronary artery disease, stable. No chest pain or shortness of breath at this moment. 8. Dementia. Aware. 9. This patient is doing better. I think she is stable enough to go to the medical floor. I will continue with the same management. cc: Zach Quintero MD
[2016-12-13] MEDS: ROCEPHIN 1 GM/NS 1 GM/50 ML IVPB IV SCH (11:35)
[2016-12-13] MEDS: ZITHROMAX 500 MG/NS 500 MG/250 ML IVPB IV SCH (14:39)
[2016-12-13] MEDS: XANAX PO SCH ×2 (17:29→20:22)
[2016-12-13] MEDS: ZOFRAN IV PRN (23:05)
[2016-12-14] MEDS: DUONEB (A & A) INH SCH ×5 (03:26→19:48)
[2016-12-14] MEDS: ZOFRAN IV PRN ×2 (05:41→09:47)
[2016-12-14] MEDS: NEXIUM PO SCH (06:03)
[2016-12-14] MEDS: TORADOL IV PRN ×2 (06:40→22:08)
[2016-12-14 06:42] LABS: MANUAL DIFF NEEDED? NO
[2016-12-14 06:56] LABS: BASO% 0.2 % (0.0-0.8); EOS# 0.01 X1000 (0.0-0.7); EOS% 0.1 % (0.0-10.0); HEMATOCRIT 40.7 % (37.0-47.0); HEMOGLOBIN 13.6 g/dL (12.0-16.0); IMM GRAN% 0.6 % (0.0-0.5); LYMPH# 1.31 X1000 (1.2-3.4); LYMPH% 8.4 % (20.5-51.1); MCH 29.4 PG (27-31); MCHC 33.4 g/dL (33-37); MCV 88.1 FL (81-99); MONO# 1.64 X1000 (0.11-0.59); MONO% 10.5 % (1.7-9.3); MPV 9.6 FL (7.4-10.4); NEUT% 80.2 % (42.2-75.2); PLT 286 X1000 (130-400); RBC 4.62 XMIL (4.2-5.4)
[2016-12-14 07:23] LABS: AGAP 16; BUN 6 mg/dL (8-22); CALCIUM 9.5 mg/dL (8.8-10.2); CHLORIDE 103 mmol/L (98-107); COSMO 276; POTASSIUM 3.2 mmol/L (3.5-5.1); SODIUM 139 mmol/L (136-145); TCO2 20 mmol/L (25-35)
[2016-12-14] MEDS: XANAX PO SCH ×4 (09:47→22:02)
[2016-12-14] MEDS: NAMENDA XR PO SCH (09:47)
[2016-12-14] MEDS: NS 1,000 ML IV SCH ×2 (09:47→22:00)
[2016-12-14] MEDS: LEXAPRO PO SCH (09:47)
[2016-12-14] MEDS: POTASSIUM CHLORIDE 20 MEQ/SWI 20 MEQ/100 ML IVPB IV SCH ×2 (10:07→11:58)
--- NOTE | 2016-12-14 10:10 | PROGRESS NOTE ---
DATE: 12/14/2016 SUBJECTIVE: The family members at the bedside. This patient feels better, but she has been complaining of multiple bowel movements, apparently yesterday she had 4 loose bowel movements. This patient is not on any stool softener at this moment. Her abdomen looks a little bit distended and she has mild pain to palpation at the level of the right lower quadrant. She apparently had before bowel obstruction, so I will I will ask for a CT scan of her abdomen. OBJECTIVE: Vital Signs: Temperature 99.2 degrees, pulse 83, respiratory rate 20, blood pressure 153/57, oxygen saturation 90 on room air. HEENT: Head normocephalic. No trauma. PERRLA. Neck: Supple. No JVD. No masses. Central trachea. Lungs: Bilateral rales at the bases with right middle and lower lung rhonchi. Cardiovascular: RRR. Systolic murmur. Abdomen: Soft, mildly to moderately distended. Positive bowel sounds. No hepatosplenomegaly. Mild tenderness to palpation at the level of the right lower quadrant. Extremities: No edema. No clubbing. No cyanosis. Neurological examination: The patient is alert and oriented x2. She is able to recognize family members. She has baseline dementia for the past 2-1/2 years. LABORATORY: WBC 15.6, hemoglobin 13.6, hematocrit 40.7, platelets 286. Sodium 139, potassium 3.2, chloride 103, bicarbonate 20, BUN 6, creatinine 0.4, glucose 107, calcium 9.5. ASSESSMENT AND PLAN: 1. Acute respiratory acute respiratory failure, resolved. This patient's oxygen saturation has been in the low 90s without oxygen. I will put this patient back on oxygen. Continue with the same management. 2. Right middle lobe pneumonia. This patient has been placed on ceftriaxone and azithromycin. We will continue with the same medication. Will monitor daily complete blood count and comprehensive metabolic panel. 3. Hypertension, stable. The blood pressure is around 150. We will continue to monitor. 4. Urinary tract infection. Continue with ceftriaxone. 5. Hyponatremia, resolved. 6. Hypokalemia. I will replace the potassium today. 7. Abdominal distention with diarrhea. I will ask for Clostridium difficile toxin and antigen. Also will ask for a computed tomography scan of the abdomen. She has mild right lower quadrant pain. No signs of peritoneal irritation at this moment. 8. Chronic obstructive pulmonary disease not in exacerbation. 9. History of coronary artery disease, stable. No chest pain. No shortness of breath at this moment. 10. Dementia, aware. cc: Zach Quintero MD
--- NOTE | 2016-12-14 10:39 | Diag Imaging Result Document ---
PROCEDURE NAME: CT ABD WITH IV CONTRAST ONLY - 12/14/2016 CT ABDOMEN AND PELVIS WITH IV CONTRAST: COMPARISON: 08/23/2016. FINDINGS: There has been development of small bilateral pleural effusions with atelectasis at both lung bases. Superimposed infection at the lung bases cannot be excluded. There is a stable mass in the spleen exhibiting peripheral nodular enhancement. This enhancement pattern is highly suggestive of a splenic hemangioma. It measures about 1.9 cm in the greatest dimension. There is also a stable enhancing nodule in the inferior right hepatic lobe measuring up to 1.2 cm. Although somewhat nonspecific, it probably represents a flash filling hemangioma. It can be identified as far back as a prior CT dated 08/10/2015. There is a small amount of ascites tracking around the liver and layering in the pelvis. There is mild thickening of the left adrenal gland that is stable and statistically most likely represents adrenal hyperplasia or an adenoma. There is a stable tiny cystic-appearing focus involving the medial right kidney. The kidneys are unremarkable, otherwise. There are multiple loops of at least moderately distended small bowel with air-fluid levels suggesting a likely obstruction. It is actually fairly similar to the previous study in 08/2016. An exact transition point cannot be identified. However, there are several nondistended loops of bowel in the right lower quadrant. The stomach is also moderately distended. There is extensive aortoiliac atherosclerotic calcification that is stable. The remainder of the solid viscera of the abdomen and pelvis and the remainder of the GI tract is essentially unremarkable. IMPRESSION: 1. Multiple distended loops of small bowel with air-fluid levels worrisome for small bowel obstruction. 2. Bilateral small pleural effusions and bibasilar atelectasis. 3. Small ascites tracking around the liver and layering in the pelvis. 4. Other incidental/nonacute findings detailed above.
[2016-12-14] MEDS: ROCEPHIN 1 GM/NS 1 GM/50 ML IVPB IV SCH (12:10)
[2016-12-14] MEDS: ZITHROMAX 500 MG/NS 500 MG/250 ML IVPB IV SCH (16:11)
[2016-12-14 20:02] LABS: OCCULT BLOOD 1 POSITIVE (NEGATIVE)
[2016-12-14 20:30] LABS: C DIFF ANTIGEN PL NEGATIVE (NEGATIVE); C DIFF TOXIN PL NEGATIVE (NEGATIVE)
--- NOTE | 2016-12-15 00:01 | CONSULTATION ---
DATE OF CONSULTATION: 12/14/2016 REQUESTING PHYSICIAN: Dr. Dexter. REASON FOR CONSULT: Possible bowel obstruction. HISTORY OF PRESENT ILLNESS: An 81-year-old female presented to [facility] with fever for 2 to 3 days, with increased shortness of breath. She was diagnosed with a potential pneumonia. For the process of being evaluated in the emergency department, she did have a temperature of 100.5, with an oxygen saturation of 85. Her blood pressure declined, and she was transferred to the ICU. She did show signs of a pneumonia in the right midlung. She has improved clinically, but developed multiple bowel movements, and a distended abdomen. She did complain of some nausea yesterday. At that point, a CT scan was order, which showed potential for a bowel obstruction. She did have a previous episode in August, had a recent exploratory laparotomy in August for a small-bowel obstruction. Given this, I was asked to evaluate the patient for an opinion on the small bowel obstruction. She has continued to have multiple small bowel movements, most recent one described as tarry, given that a Hemoccult is pending. The patient does not really give a lot more additional symptoms, and is only focused on having bowel movements, but I did not elicit any abdominal pain on exam. PAST MEDICAL HISTORY: COPD, coronary artery disease, hypertension, dyslipidemia, gastroesophageal reflux disease, dementia, diastolic congestive heart failure. PAST SURGICAL HISTORY: Includes previous pacemaker placement, hysterectomy, previous exploratory laparotomy, previous hernia repair, previous hip fracture. FAMILY HISTORY: Reviewed with patient, but noncontributory to this case. SOCIAL HISTORY: Lives with family. Denies alcohol, tobacco or illicit drugs. ALLERGIES: Morphine. HOME MEDICATIONS: Reviewed. Current medications also reviewed. REVIEW OF SYSTEMS: Difficult to obtain, secondary to patient's mental status, but by report, no major other issues. PHYSICAL EXAMINATION: Vital Signs: Patient is currently afebrile. Temperature 98.4, pulse is regular at 95, respiratory rate nonlabored at 18, blood pressure 139/72, O2 saturation 98% on 2 L nasal cannula. General: No acute distress, but appears mildly confused, female, looks stated age. HEENT: Normocephalic, atraumatic. There is some bruising noted over her right eye. Mucous membranes moist. Oropharynx benign. Neck: Supple. Trachea midline. Cardiovascular: Regular rate and rhythm. Lungs: Grossly clear. Abdomen: Soft, mild distention. No major areas of tenderness noted on exam, but difficult exam given patient's mental status. Extremities: Moves all extremities. Neurologic: Grossly intact, but somewhat confused. Vascular: All extremities perfused. Skin: No jaundice, but bruising as noted above, on her face. LABORATORY: Reviewed. White blood cell count 15, hematocrit 40, platelet count 286,000, remainder of labs reviewed. ASSESSMENT/PLAN: An 81-year-old, female with multiple medical comorbidities, current pneumonia and possible bowel obstruction. 1. Multiple medical comorbidities. Currently at this time, being managed by the hospitalist. She is hemodynamically stable. We will defer management of her medical issues to the hospitalist's service. 2. Right middle lobe pneumonia. At this time, patient is on antibiotics. We will continue to monitor her respiratory status, seems to be stable. 3. Urinary tract infection. Patient is on antibiotics. 4. Possible small bowel obstruction. At this time, I reviewed her CT scan. There is no obvious transition point, but she does have some dilated proximal bowel. Her colon looks relatively decompressed. The patient is having multiple small bowel movements, which may be related to her body trying to get past the obstruction. At this time, the patient is stable, and would recommend continued nonoperative management. We will get a flat and upright abdominal film in the morning to evaluate progression. If she seems to have any kind of deterioration or no improvement in next 24 to 48 hours, may need to consider surgical intervention, but again the patient has had a recent exploratory laparotomy with lysis of adhesions in August. We will continue to follow with you. I appreciate the consult. cc: Inder Cuevas MD
[2016-12-15] MEDS: DUONEB (A & A) INH SCH ×7 (00:24→23:20)
[2016-12-15] MEDS: NS 1,000 ML IV SCH ×2 (01:40→14:41)
[2016-12-15] MEDS: ZOFRAN IV PRN (04:13)
[2016-12-15] MEDS: NEXIUM PO SCH (06:06)
[2016-12-15 06:31] LABS: MANUAL DIFF NEEDED? NO
[2016-12-15 06:34] LABS: BASO% 0.5 % (0.0-0.8); EOS# 0.05 X1000 (0.0-0.7); EOS% 0.4 % (0.0-10.0); HEMATOCRIT 39.6 % (37.0-47.0); HEMOGLOBIN 13.4 g/dL (12.0-16.0); IMM GRAN# 0.11 X1000 (0.0-0.04); IMM GRAN% 0.9 % (0.0-0.5); LYMPH# 1.29 X1000 (1.2-3.4); LYMPH% 10.4 % (20.5-51.1); MCH 29.9 PG (27-31); MCHC 33.8 g/dL (33-37); MCV 88.4 FL (81-99); MONO# 1.47 X1000 (0.11-0.59); MONO% 11.8 % (1.7-9.3); MPV 9.7 FL (7.4-10.4); PLT 308 X1000 (130-400); RBC 4.48 XMIL (4.2-5.4)
[2016-12-15 07:05] LABS: AGAP 16; ALBUMIN 3.2 g/dL (3.5-5.0); ALKALINE PHOSPHATASE 136 U/L (32-104); BUN 4 mg/dL (8-22); CALCIUM 9.1 mg/dL (8.8-10.2); CHLORIDE 102 mmol/L (98-107); COSMO 272; GOT 21 U/L (10-30); GPT 12 U/L (10-36); POTASSIUM 2.7 mmol/L (3.5-5.1); SODIUM 138 mmol/L (136-145); TCO2 20 mmol/L (25-35); TOTAL PROTEIN 6.9 g/dL (6.3-8.3)
[2016-12-15] MEDS ORDERED: APRESOLINE IV PRN (07:52)
--- NOTE | 2016-12-15 08:20 | PROGRESS NOTE ---
DATE: 12/15/2016 SUBJECTIVE: Patient doing okay. She did have some bowel movements reported yesterday and an episode of nausea. We did check a Hemoccult on her stool. It was positive. Otherwise, no other major changes. OBJECTIVE: Vital Signs: Patient is currently afebrile. Her vital signs are stable. General Examination: No acute distress. Alert, minimally responsive though. female, looks stated age. HEENT: Normocephalic, atraumatic. Pupils equal, round, and react to light. Mucous membranes moist. Oropharynx benign. Neck: Supple. Trachea midline. Cardiovascular: Regular rate and rhythm. Lungs: Grossly clear. Abdomen: Soft. Minimal distention. Incision is well healed. No real abdominal tenderness appreciated. Extremities: Moves all extremities. Neurologic: Grossly intact. Skin: No signs of jaundice. Vascular: All extremities perfused. Laboratory: White blood cell count is 12 which is down from 15, hematocrit is 39.6, platelet count 308,000. Sodium is 138, potassium is 2.7, creatinine 0.4. Albumin 3.2. Abdominal x-ray reviewed. Official report is pending but I did discuss it with Dr. Bruce, the radiologist. It does show improvement. ASSESSMENT/PLAN: An 81-year-old, female with a partial small bowel obstruction. 1. Partial small bowel obstruction. At this time, the patient seems to be improving. Would recommend continued nothing per oral for now. Repeat abdominal film in the morning. If it shows continued improvement, we will start a liquid diet. 2. Multiple medical comorbidities, currently being managed by the hospitalist service. 3. Right middle lobe pneumonia. She is currently on antibiotics. 4. Urinary tract infection. She is currently on antibiotics. 5. Hemoccult positive stool. At this time, the patient has had a recent colonoscopy per the report of the daughter, like in the last 1-[address] Schmitz. At this time, her hematocrit is stable but would recommend a repeat colonoscopy here in the near future once she improves over her bowel obstruction to evaluate for the Hemoccult positive stool. She is on Toradol. I have stopped that, given her age and the Hemoccult-positive stool. Would recommend not using Toradol at this time. 6. Hypokalemia. At this time, may be contributing to some of her bowel obstruction. Recommend replacing her electrolytes. I appreciate the consult. I will continue to follow with you. cc: Inder Cuevas MD
--- NOTE | 2016-12-15 08:57 | Diag Imaging Result Document ---
PROCEDURE NAME: ABDOMEN FLAT/UPRIGHT - 12/15/2016 FLAT AND UPRIGHT RADIOGRAPH OF THE ABDOMEN 3 VIEWS: COMPARISON: CT dated 12/14/2016 and prior radiograph dated 08/27/2016. FINDINGS: There is patchy bowel gas throughout the abdomen. However, most of this appears to be colonic. There certainly appears to be less bowel distention as compared to the recent CT. There is still mild gaseous distention of the stomach but this is also probably improved since the CT. There is no evidence of large-volume free abdominal gas. IMPRESSION: Interval improvement of small bowel and gastric distention.
[2016-12-15] MEDS: NAMENDA XR PO SCH (10:51)
[2016-12-15] MEDS: XANAX PO SCH ×4 (10:52→20:06)
[2016-12-15] MEDS: LEXAPRO PO SCH (10:52)
[2016-12-15] MEDS: ROCEPHIN 1 GM/NS 1 GM/50 ML IVPB IV SCH (11:45)
[2016-12-15] MEDS: POTASSIUM CHLORIDE 20 MEQ/SWI 20 MEQ/100 ML IVPB IV SCH ×2 (13:35→15:29)
--- NOTE | 2016-12-15 13:38 | PROGRESS NOTE ---
DATE: 12/15/2016 SUBJECTIVE: When I evaluated this patient, the patient was sleeping. Apparently, she had a tough night. Yesterday, this patient was evaluated by Surgery Department because of the possibility of a small-bowel obstruction. She has had surgery because of these before by Dr. Corrigan. Today, this patient is stable. The abdomen is mildly distended. The bowel sounds are decreased, though. She did not complain about pain upon palpation. Family members at the bedside. OBJECTIVE: Vital Signs: Temperature 99.5 degrees, pulse 92, respiratory rate 16, blood pressure 162/65, oxygen saturation 99% on room air. HEENT: Head normocephalic. No trauma. PERRLA. Neck: Supple. No JVD. No masses. Central trachea. Lungs: Bilateral rales at the bases, with right middle and lower lung rhonchi. Cardiovascular: RRR. Systolic murmur. Abdomen: Soft, mildly to moderately distended. Decreased bowel sounds. No hepatosplenomegaly. She did not complain of pain upon palpation. Extremities: No edema. No clubbing. No cyanosis. Neurological Examination: When I examined this patient, she was sleepy. Apparently, she spent most of the night awake. She has a baseline dementia for the past 2-1/2 years. LABORATORY: WBC 12.4, hemoglobin 13.4, hematocrit 39.6, platelets 308,000. Sodium 138, potassium 2.7, chloride 102, bicarbonate 20, BUN 4, creatinine 0.4, glucose 87, calcium 9.1, albumin 3.2. ASSESSMENT AND PLAN: 1. Acute respiratory failure, resolved. This patient's oxygen saturation has been stable. Continue with oxygen supplementation. Continue with the same management. 2. Right lower lobe pneumonia. This patient has been placed on ceftriaxone and azithromycin. We will continue with the same medication for now. We will continue to monitor the CBC and CMP daily. 3. Abdominal distention with episodes of diarrhea, pending Clostridium difficile colitis. We have a CT scan that showed the possibility of a small-bowel obstruction. Surgery Department is on board. We will continue following their recommendations. This patient is n.p.o. 4. Possibility of small-bowel obstruction, as above. 5. Hypertension, stable. The blood pressure has been a little bit high. We will continue to monitor. 6. Urinary tract infection. Continue with ceftriaxone. 7. Hyponatremia, resolved. 8. Chronic obstructive pulmonary disease, not in exacerbation. 9. History of coronary artery disease, stable. No chest pain or shortness of breath at this moment. 10. Dementia. Aware. cc: Zach Quintero MD
[2016-12-15] MEDS: DILAUDID IV PRN ×2 (15:30→23:55)
[2016-12-15] MEDS: ZITHROMAX 500 MG/NS 500 MG/250 ML IVPB IV SCH (17:58)
[2016-12-16] MEDS: DUONEB (A & A) INH SCH ×5 (03:59→18:57)
[2016-12-16] MEDS: NS 1,000 ML IV SCH ×3 (04:53→20:12)
[2016-12-16 05:36] LABS: AGAP 13; BUN 7 mg/dL (8-22); CALCIUM 8.8 mg/dL (8.8-10.2); CHLORIDE 101 mmol/L (98-107); COSMO 271; POTASSIUM 2.9 mmol/L (3.5-5.1); SODIUM 137 mmol/L (136-145); TCO2 24 mmol/L (25-35)
[2016-12-16] MEDS: NEXIUM PO SCH (06:09)
--- NOTE | 2016-12-16 06:54 | PROGRESS NOTE ---
DATE: 12/16/2016 SUBJECTIVE: No major issues. The patient is doing okay. Two bowel movements recorded for yesterday. OBJECTIVE: Vital Signs: Patient is currently afebrile. Her vital signs are stable. General: No acute distress. Resting comfortably. HEENT: Normocephalic atraumatic. Pupils are equal, round and reactive to light. Mucous membranes moist. Oropharynx benign. Neck: Supple. Trachea midline. Cardiovascular: Regular rate and rhythm. Lungs: Grossly clear. Abdomen: Soft. No distention this morning. Incision is well healed. No abdominal tenderness appreciated. Extremities: Moves all extremities. Neurologic: Resting. Skin: No signs of jaundice. Vascular: All extremities perfused. LABORATORY: From this morning, her potassium is now 2.9. Abdominal film from this morning still pending. ASSESSMENT/PLAN: 1. An 81-year-old female with partial small bowel obstruction. 2. Partial small bowel obstruction: At this time, I think she is improving. We will start her on a clear liquid diet. 3. Multiple medical comorbidities currently being managed by the hospitalist service. 4. Right middle lobe pneumonia currently on antibiotics. 5. Urinary tract infection. Currently on antibiotics. 6. Hemoccult positive stool. At this time, I think the patient needs to have a follow up with Dr. Schmitz in the near future to evaluate this fully. She may need a repeat colonoscopy. Again, I will hold off on any Toradol. 7. Hypokalemia at this time seems to be improving. We will continue to monitor and replace her electrolytes as needed. cc: Inder Cuevas MD
[2016-12-16] MEDS: DILAUDID IV PRN ×2 (07:06→19:33)
[2016-12-16] MEDS ORDERED: SODIUM CHLORIDE 0.9% INJ PRN ×2 (07:50→07:51)
[2016-12-16] MEDS ORDERED: NS 250 ML ONE (07:58)
[2016-12-16] MEDS ORDERED: NS 250 ML IV SCH (08:00)
[2016-12-16] MEDS: XANAX PO SCH ×4 (08:00→20:12)
[2016-12-16] MEDS: LEXAPRO PO SCH (08:00)
[2016-12-16] MEDS: NAMENDA XR PO SCH (08:00)
--- NOTE | 2016-12-16 08:34 | Diag Imaging Result Document ---
PROCEDURE NAME: FLAT/UPRIGHT ABD/1 VIEW CHEST - 12/16/2016 ACUTE ABDOMINAL SERIES: INDICATION: Bowel obstruction. COMPARISON: 12/15/2016. FINDINGS: Supine and erect views of the abdomen reveal a nonobstructive bowel gas pattern. There is a right total hip arthroplasty. No organomegaly or mass effect is appreciated. Less distention of the stomach is noted currently. There are increased interstitial markings throughout both lungs most prominent in the right upper lobe suspicious for interstitial edema with superimposed focal edema or pneumonia in the right upper lobe. There is a small left pleural effusion. There is evidence of a previous granulomatous infection. IMPRESSION: 1. Decrease in gastric distention of the stomach. No evidence for obstruction on today's radiograph. 2. Prominent interstitial markings bilaterally with more focal infiltrate in the right upper lobe. 3. Small left effusion.
[2016-12-16 08:37] LABS: INR 1.31 (0.86-1.15); PROTIME 16.6 Seconds (12.1-15.5)
--- NOTE | 2016-12-16 09:40 | Diag Imaging Result Document ---
PROCEDURE NAME: CHEST-PORTABLE - 12/16/2016 CHEST, SINGLE VIEW: COMPARISON: 12/16/2016. INDICATION: PICC placement. FINDINGS: A PICC catheter has been placed with its tip at the cavoatrial junction. Lung volumes are reduced. Right lung infiltrate is again demonstrated. Left effusion and left basilar atelectasis or infiltrate are also noted. IMPRESSION: PICC catheter at the cavoatrial junction.
[2016-12-16] MEDS: ROCEPHIN 1 GM/NS 1 GM/50 ML IVPB IV SCH (11:32)
[2016-12-16] MEDS ORDERED: KLOR-CON PO ONE (12:02)
[2016-12-16] MEDS ORDERED: MAGNESIUM SULFATE 2 GM/S.W.I. 2 GM/50 ML IVPB IV ONE (12:04)
--- NOTE | 2016-12-16 13:19 | PROGRESS NOTE ---
DATE: 12/16/2016 Today Ms. Aldridge is relatively stable. The daughter was in the room with her. According to the daughter the patient had a very good bowel movement. She does not have any more abdominal discomfort and she is sleeping very well. OBJECTIVE: Vital signs: Blood pressure is 133/62, pulse of 88, respirations 16, temperature is 98.4 degrees. General: Ms. Aldridge is an 81-year-old female. She is in bed. HEENT: Mucosa is slightly dry. Anicteric. Acyanotic. Neck: Supple. Chest: Good air entry bilaterally. Few bibasilar crepitations. Cardiovascular: Regular rate and rhythm. Abdomen: Soft, nontender. Extremities: No pedal edema. BUCKLE SEWER: Patient is alert and oriented. There is no focal neurological deficit. LABORATORY DATA: WBC is 12.43, hemoglobin is 13.4, platelet count of 308,000. Chemistry is reviewed. Sodium is 137, potassium is 2.9. Renal function is normal. A chest x-ray this morning shows PICC line is in place. Lung volumes are reduced. There is a right lung infiltrates and left effusion and left bibasilar atelectasis or infiltrate also noted. ASSESSMENT: 1. Acute hypoxemic respiratory failure likely due to underlying pneumonia. 2. Multifocal pneumonia worse on the right lower lobe than the left. 3. Partial small bowel obstruction. Patient is having a bowel movement today. Was on clear liquid. We will therefore switch her to a GI soft diet. 4. COPD currently not in exacerbation. 5. History of coronary artery disease. 6. Alzheimer's dementia noted. So in general I think Ms. Aldridge is doing a whole lot better. We are going to replace her potassium and also replace magnesium to see if that will help with some of the bowel movement. We will check on her TSH to make sure there is no any underlying hypothyroidism. She continues to be dry so will continue with the IV gentle hydration and as I said, we will change her diet since she is having bowel movement. We will encourage the patient to sit up in the chair and also ask PT to work with her to help with her bowel movement. cc: Jermain Haiedr MD
[2016-12-16] MEDS: ZITHROMAX 500 MG/NS 500 MG/250 ML IVPB IV SCH (15:34)
[2016-12-16] MEDS: ZOFRAN IV PRN (18:59)
[2016-12-17] MEDS: DUONEB (A & A) INH SCH ×6 (00:25→23:10)
[2016-12-17] MEDS: DILAUDID IV PRN ×4 (09:00→18:13)
[2016-12-17] MEDS: NS 1,000 ML IV SCH (09:00)
[2016-12-17] MEDS: NAMENDA XR PO SCH (09:03)
[2016-12-17] MEDS: LEXAPRO PO SCH (09:03)
[2016-12-17] MEDS: XANAX PO SCH ×4 (09:03→21:11)
[2016-12-17 09:47] LABS: AGAP 13; BUN 5 mg/dL (8-22); CALCIUM 8.6 mg/dL (8.8-10.2); CHLORIDE 101 mmol/L (98-107); COSMO 269; SODIUM 136 mmol/L (136-145); TCO2 23 mmol/L (25-35)
[2016-12-17] MEDS ORDERED: POTASSIUM CHLORIDE 20 MEQ/SWI 20 MEQ/100 ML IVPB IV SCH (12:00)
[2016-12-17] MEDS: ROCEPHIN 1 GM/NS 1 GM/50 ML IVPB IV SCH (12:10)
[2016-12-17] MEDS: NEXIUM PO SCH (12:27)
--- NOTE | 2016-12-17 12:27 | PROGRESS NOTE ---
DATE: 12/17/2016 SUBJECTIVE: Today Ms. Aldridge referred to be doing poorly. The daughter was at the bedside when I saw her. She continues to be having persistent nauseation, and her abdomen is more distended than yesterday. OBJECTIVE: Vital Signs: Blood pressure is 155/47, pulse of 92, respirations 18, temperature 98.9 degrees. General: Ms. Aldridge is an 81-year-old female. She is in bed. HEENT: Mucosa is slightly dry. Anicteric. Acyanotic. Neck: Supple. Chest: Air entry is bilaterally reduced. A few bibasilar crepitations. Cardiovascular: Regular rate and rhythm. Abdomen: Soft. It is distended. Bowel sounds are very hypoactive. There is an old midline surgical scar. Central Nervous System: The patient is alert and oriented x4. LABORATORY DATA: No CBC today. The chemistry, sodium is 136, potassium is 3, chloride is 101, bicarbonate is 23. A KUB done this morning shows a more dilated gastric shadow. We are still pending the official report on that. ASSESSMENT AND PLAN: 1. Acute hypoxemic respiratory failure on presentation due to pneumonia. 2. Multifocal pneumonia, right worse than the left. The patient is currently on antibiotics. She seems to be doing okay. 3. Partial small bowel obstruction. The patient's abdomen seems a whole lot more distended today. She is now more nauseated. We are going to keep her nothing by mouth, put a nasogastric tube in, and notify the surgeons about the change in clinical status. 4. Chronic obstructive pulmonary disease, currently not in exacerbation. 5. History of coronary artery disease, noted. 6. Alzheimer dementia. So in general I think Ms. Aldridge is a little worse today than yesterday. The abdomen/partial small bowel obstruction seems to have worsened since yesterday since we started giving her a gastrointestinal soft diet. The KUB this morning shows worsening of the image. We are, therefore, going to put in a nasogastric tube, keep her nothing by mouth, start her on Clinimix with lipid infusion for nutritional support, get a consultation with the dietitian, and also notify the surgeons about the change in status. cc: Jermain Haider MD
[2016-12-17] MEDS ORDERED: MAGNESIUM SULFATE 2 GM/S.W.I. 2 GM/50 ML IVPB IV ONE ×2 (12:30→13:00)
[2016-12-17] MEDS ORDERED: LIPOSYN 20% 250 ML IV SCH (12:30)
[2016-12-17] MEDS ORDERED: BENTYL IM SCH (13:00)
[2016-12-17] MEDS: CLINIMIX E 4.25%-5% SOLUTION 1,000 ML IV SCH (13:06)
[2016-12-17] MEDS: LIPOSYN 20% 500 ML IV SCH (13:06)
--- NOTE | 2016-12-17 13:22 | Diag Imaging Result Document ---
PROCEDURE NAME: ERVIN ABDOMEN - 12/17/2016 ABDOMEN SINGLE VIEW: FINDINGS: The stomach is distended with air. There is air throughout the bowel loops with no significant distention. No organomegaly. Prior orthopedic replacement of the right hip. Mild scoliosis. IMPRESSION: No definite acute abnormality.
[2016-12-17] MEDS: POTASSIUM CHLORIDE 20 MEQ/SWI 20 MEQ/100 ML IVPB IV SCH ×2 (14:38→17:02)
[2016-12-17] MEDS: BENTYL IM SCH ×2 (14:48→21:11)
--- NOTE | 2016-12-17 15:15 | Diag Imaging Result Document ---
PROCEDURE NAME: CHEST-PORTABLE - 12/17/2016 PORTABLE CHEST/ABDOMEN: COMPARISON: Compared to an exam performed earlier. FINDINGS: Interval placement of a nasogastric tube. This overlies the esophagus and stomach. Infiltrates remain in the lungs. IMPRESSION: Nasogastric tube enters the stomach.
--- NOTE | 2016-12-17 15:29 | PROGRESS NOTE ---
DATE: 12/17/2016 SUBJECTIVE: She says she is having colicky abdominal pains, nausea NG tube is bothering her, lots of pain in her back and is chronic. OBJECTIVE: Vital signs: No fevers. No tachycardia. Blood pressure 164/62, oxygen saturation 97% on 2 L. General: She is alert, seems anxious but no acute distress. NG tube is in place with minimal output right now. Abdomen: Soft, nontender, mildly distended. Integument: Otherwise warm and dry. LABS: Reviewed her labs. Potassium is 3. ASSESSMENT AND PLAN: 81-year-old female admitted with pneumonia and found to have bowel obstruction type picture. Really this is more of an ileus. She did have an exploratory laparoscopy approximately 6 months ago for bowel obstruction Dr. Corrigan. Given her electrolyte derangements and this following another systemic illness I suspect that this is ileus and as we optimize her other systemic problems this would be better. She has got NG tube in place, appears to be advanced on her x-ray. Will ask nurse to do this and secure it. Otherwise keep her NPO. She is on TPN. Will continue to follow along. No plans for surgical intervention. cc: Den Borges MD
[2016-12-17] MEDS: ZITHROMAX 500 MG/NS 500 MG/250 ML IVPB IV SCH (21:10)
[2016-12-18] MEDS: CLINIMIX E 4.25%-5% SOLUTION 1,000 ML IV SCH ×2 (01:14→14:21)
[2016-12-18] MEDS: ZOFRAN IV PRN (03:04)
[2016-12-18] MEDS: DILAUDID IV PRN ×4 (03:04→19:56)
[2016-12-18] MEDS: DUONEB (A & A) INH SCH ×7 (04:13→23:44)
[2016-12-18] MEDS: NEXIUM PO SCH (06:02)
[2016-12-18 06:20] LABS: MANUAL DIFF NEEDED? NO
[2016-12-18 06:29] LABS: BASO% 0.3 % (0.0-0.8); EOS# 0.33 X1000 (0.0-0.7); EOS% 3.5 % (0.0-10.0); HEMATOCRIT 31.9 % (37.0-47.0); HEMOGLOBIN 10.5 g/dL (12.0-16.0); IMM GRAN# 0.06 X1000 (0.0-0.04); IMM GRAN% 0.6 % (0.0-0.5); LYMPH# 1.68 X1000 (1.2-3.4); LYMPH% 17.6 % (20.5-51.1); MCH 29.7 PG (27-31); MCHC 32.9 g/dL (33-37); MCV 90.4 FL (81-99); MONO# 1.15 X1000 (0.11-0.59); MONO% 12.1 % (1.7-9.3); MPV 9.2 FL (7.4-10.4); NEUT% 65.9 % (42.2-75.2); PLT 266 X1000 (130-400); RBC 3.53 XMIL (4.2-5.4)
[2016-12-18 07:04] LABS: AGAP 12; ALBUMIN 2.9 g/dL (3.5-5.0); ALKALINE PHOSPHATASE 73 U/L (32-104); BUN 12 mg/dL (8-22); CALCIUM 8.3 mg/dL (8.8-10.2); CHLORIDE 102 mmol/L (98-107); COSMO 274; GOT 10 U/L (10-30); GPT 8 U/L (10-36); SODIUM 137 mmol/L (136-145); TCO2 23 mmol/L (25-35); TOTAL PROTEIN 5.2 g/dL (6.3-8.3)
--- NOTE | 2016-12-18 08:12 | Diag Imaging Result Document ---
PROCEDURE NAME: KUB ABDOMEN - 12/18/2016 PORTABLE AP SUPINE ABDOMEN: Compared with 12/17/2016. FINDINGS: Here is a nasogastric tube with its tip at the expected location of the proximal stomach. There has been interval resolution of the gaseous distention of the stomach which was seen on the previous exam. There is gas visible in mostly nondistended colon. There is no substantial gaseous small-bowel distention identified. IMPRESSION: Interval placement of nasogastric tube at the proximal stomach with associated resolution of the previous gaseous distention of the stomach. The bowel gas pattern is nonspecific.
[2016-12-18] MEDS: BENTYL IM SCH ×3 (09:51→22:09)
[2016-12-18] MEDS: NAMENDA XR PO SCH (09:52)
[2016-12-18] MEDS: XANAX PO SCH ×4 (09:52→23:01)
[2016-12-18] MEDS: LEXAPRO PO SCH (09:53)
[2016-12-18] MEDS: ROCEPHIN 1 GM/NS 1 GM/50 ML IVPB IV SCH (12:07)
--- NOTE | 2016-12-18 12:49 | Diag Imaging Result Document ---
PROCEDURE NAME: CHEST-PORTABLE - 12/18/2016 PORTABLE CHEST: Compared with 12/16/2016. FINDINGS: There is a nasogastric tube which extends to the expected location of the mid stomach. PICC remains in place. There is relatively diffuse ill-defined infiltrate on the right which appears essentially stable. There has been interval decrease in left basilar opacity. There is no pneumothorax seen. IMPRESSION: Nasogastric tube extending to mid stomach. Stable infiltrate on the right. Decrease in left basilar opacity.
[2016-12-18] MEDS ORDERED: LASIX IV ONE (13:26)
[2016-12-18] MEDS: LIPOSYN 20% 500 ML IV SCH (13:26)
--- NOTE | 2016-12-18 16:21 | PROGRESS NOTE ---
DATE: 12/18/2016 SUBJECTIVE: Feels better now that NG tube is functional and no more abdominal pain. She is having gas from her bottom and stool. OBJECTIVE: Vital signs: No fevers. Temperature is 97.9, pulse 86, blood pressure 147/73, oxygen saturation 94% on 3 L. General: She is alert, elderly appearing female. NG tube is in place bilious output. Cardiovascular: Normal rate, regular rhythm. Pulmonary: No increased work of breathing. Abdomen: Soft, nontender, nondistended, non-tympanic. Integument: Warm, dry without jaundice. Extremities: No lower extremity edema. LABS: Reviewed her labs. White count is 9, hematocrit 31, creatinine 0.4, potassium is now 4 so that is good. LFTs are normal. BNP is 1043. Chest x-ray shows good positioning of her nasogastric tube with no significant small bowel dilation or free air under the diaphragm. ASSESSMENT AND PLAN: This is a 81-year-old female admitted with pneumonia and urinary tract infection and significant electrolyte derangements who seems to have developed an ileus secondary to this. Clinically she is improving from all aspects. Her bowels seem to have begun to work but I suspect she still has some significant component of ileus here. Will keep her NG tube until she has reliable bowel function then removed this and advance her diet as tolerated. She is on TPN. Will continue follow along. cc: Den Borges MD
--- NOTE | 2016-12-18 16:34 | PROGRESS NOTE ---
DATE: 12/18/2016 SUBJECTIVE: Today Ms. Aldridge referred to be doing a little better. Continues to be hurting all over, especially in the abdomen. OBJECTIVE: Vital signs: Blood pressure is 147/73, pulse of 83, respirations 18, temperature 97.9 degrees. General: Ms Aldridge is an 81-year-old female. She is in bed. She did not seem to be in any cardiopulmonary distress but was in mild painful discomfort. HEENT: Mucosa is pink and moist. Anicteric. Acyanotic. Neck: Supple. Chest: Air entry is bilaterally reduced. There are a few bibasilar crepitations. Cardiovascular: Regular rate and rhythm. Abdomen: Soft. It is distended. It is hallow in percussion. There is a midline surgical scar. MANAGER EQUIPMENT: Patient is awake, alert, and oriented. LABORATORY DATA: WBC is 9.53, hemoglobin is 10.5, platelet count is 266,000. Chemistry: Sodium is 137, potassium is 4.0, chloride is 102, bicarb is 23. IMAGING STUDIES: A chest x-ray was done today which shows relatively diffuse, ill-defined infiltrate on the right which appears essentially stable. There has been interval decrease in the left basilar opacity. A KUB done this morning shows interval placement of tube in the proximal stoma without associated resolution of the previous gaseous distention of the stomach. ASSESSMENT: 1. Acute hypoxemic respiratory failure on presentation due to pneumonia. Patient is currently on antibiotics, namely azithromycin and ceftriaxone. Today is day 6 of the antibiotics. We plan to continue this for a total of 10 days. 2. Multifocal pneumonia, worse on the left than the right. X-ray this morning shows slight improvement especially on the left side. 3. Partial small bowel obstruction. Patient was having some issues with the NG tube. It has been replaced. There has been some improvement in the gastric distention. There is still some nonspecific intestinal gas distention. We are going to continue with the NG-tube for gastric decompression. We will make sure potassium and magnesium are well repleted. 4. History of chronic obstructive pulmonary. Currently not in exacerbation. 5. Coronary artery disease, noted. 6. Alzheimer's dementia. PLAN: So in general, I think Ms. Aldridge is relatively fine. She does have pneumonia which is being treated with current antibiotics. White cell count has improved. She also has a partial small bowel obstruction which surgery is following with us. NG tube is still in place for gastric decompression. Will be waiting for surgery to evaluate the patient for further recommendations. Potassium and magnesium have been replaced and potassium is actually back to normal today. Because patient is NPO will continue with the lipid infusion as well as the Clinimix. cc: Jermain Haider MD
[2016-12-18] MEDS: ZITHROMAX 500 MG/NS 500 MG/250 ML IVPB IV SCH (22:08)
[2016-12-19] MEDS: DILAUDID IV PRN ×6 (01:40→22:53)
[2016-12-19] MEDS: DUONEB (A & A) INH SCH ×5 (04:55→19:59)
[2016-12-19] MEDS: NEXIUM PO SCH (06:06)
[2016-12-19 06:16] LABS: MANUAL DIFF NEEDED? NO
[2016-12-19 06:27] LABS: BASO% 0.3 % (0.0-0.8); EOS# 0.29 X1000 (0.0-0.7); HEMATOCRIT 31.6 % (37.0-47.0); HEMOGLOBIN 10.2 g/dL (12.0-16.0); IMM GRAN# 0.04 X1000 (0.0-0.04); IMM GRAN% 0.5 % (0.0-0.5); LYMPH# 1.65 X1000 (1.2-3.4); LYMPH% 22.5 % (20.5-51.1); MCH 29.2 PG (27-31); MCHC 32.3 g/dL (33-37); MCV 90.5 FL (81-99); MONO# 0.93 X1000 (0.11-0.59); MONO% 12.7 % (1.7-9.3); PLT 262 X1000 (130-400); RBC 3.49 XMIL (4.2-5.4)
[2016-12-19 06:49] LABS: AGAP 10; ALBUMIN 2.8 g/dL (3.5-5.0); ALKALINE PHOSPHATASE 65 U/L (32-104); BUN 13 mg/dL (8-22); CALCIUM 8.8 mg/dL (8.8-10.2); CHLORIDE 100 mmol/L (98-107); COSMO 272; GOT 11 U/L (10-30); GPT 8 U/L (10-36); POTASSIUM 3.9 mmol/L (3.5-5.1); SODIUM 136 mmol/L (136-145); TCO2 27 mmol/L (25-35)
--- NOTE | 2016-12-19 08:40 | Diag Imaging Result Document ---
PROCEDURE NAME: ABDOMEN FLAT/UPRIGHT - 12/19/2016 FLAT AND UPRIGHT ABDOMEN TWO VIEWS: COMPARISON: Compared to 12/18/2016. FINDINGS: A nasogastric tube overlies the stomach. No free air beneath the diaphragm. No definite bowel obstruction. No organomegaly. Mild scoliosis. Moderate atherosclerosis. IMPRESSION: The bowel loops are less distended on the current exam and there is no definite evidence of obstruction.
[2016-12-19] MEDS: LEXAPRO PO SCH (09:25)
[2016-12-19] MEDS: NAMENDA XR PO SCH (09:25)
[2016-12-19] MEDS: BENTYL IM SCH ×3 (09:25→20:51)
[2016-12-19] MEDS: XANAX PO SCH ×4 (09:25→20:51)
[2016-12-19] MEDS: CHLORASEPTIC SPRAY MT PRN ×2 (09:40→17:03)
[2016-12-19] MEDS: ROCEPHIN 1 GM/NS 1 GM/50 ML IVPB IV SCH (10:55)
[2016-12-19] MEDS: CLINIMIX E 4.25%-5% SOLUTION 1,000 ML IV SCH (10:56)
--- NOTE | 2016-12-19 11:37 | PROGRESS NOTE ---
DATE: 12/19/2016 SUBJECTIVE: Ms. Aldridge states that she is feeling a little better. She does continue with abdominal pain. She continues to pass gas from her bottom. OBJECTIVE: Vital signs: Blood pressure is 131/49, heart rate 67, respiratory rate 18, temperature 98.6, oxygen saturations of 95% to 96% on 3 L nasal cannula. Cardiovascular: Regular rate and rhythm. S1 and S2 appreciated. Pulmonary: Breath sounds are clear bilaterally with no increased work of breathing noted. Chest does rise and fall symmetrically. Gastrointestinal: Abdomen is soft, nontender and nondistended. Extremities: No cyanosis, clubbing or edema. Neurologic: She is alert and oriented x3. DIAGNOSTIC DATA: WBC is 7.33 with hemoglobin of 10.2, hematocrit 31.6 and platelets of 262. Sodium is 136, potassium 3.9, BUN is 13, creatinine 0.4 with glucose of 95. Abdominal x-ray reveals bowel loops are less distended on the current exam. There is no definite evidence of obstruction. NG tube does overlie the stomach. ASSESSMENT AND PLAN: 1. Acute hypoxemic respiratory failure on presentation secondary to pneumonia. We will continue with azithromycin and Rocephin for antibiotic coverage. We will continue with TPN for nutrition. Today is day 13 of antibiotics. 2. Multifocal pneumonia, worse on the left than right. As stated above, we will continue antibiotics and continue treatment. 3. Partial small bowel obstruction. NG tube is in place per xray. We will continue with gastric decompression. She does continue to pass gas through her bottom. We will follow with Dr. Borges. 4. History of chronic obstructive pulmonary disease. Currently not in exacerbation. 5. Coronary artery disease. Noted. 6. Alzheimer's dementia. Noted. 7. We will continue to trend electrolytes and replete as appropriate. Further treatments pending hospital course. Dictated by MONIK Bond for Wilton Lai MD cc: MONIK Bond MD pt examined, agree with above, [facility]
[2016-12-19] MEDS: LIPOSYN 20% 500 ML IV SCH (12:31)
[2016-12-19] MEDS: PROTONIX IV SCH (14:24)
--- NOTE | 2016-12-19 18:06 | PROGRESS NOTE ---
DATE: 12/19/2016 SUBJECTIVE: The patient has had her NG tube clamped for most the mornings. No significant nausea. She states she is still passing gas. OBJECTIVE: Vital Signs: Patient is currently afebrile. Her vital signs are stable. General: No acute distress. HEENT: Normocephalic, atraumatic. Pupils equal, round, react to light. Mucous membranes moist. Oropharynx benign. NG tube in place but clamped. Neck: Supple. Trachea midline. Cardiovascular: Regular rate and rhythm. Lungs: Grossly clear. Abdomen: Soft, nontender, nondistended. Extremities: Moves all extremities. Neurologic: Grossly intact. Skin: No signs of jaundice. Vascular: All extremities perfused. LABORATORY: Reviewed. White blood count 7, hematocrit 31. Remainder of electrolytes essentially within normal limits. Albumin is 2.8. Abdominal film reviewed and radiology report reviewed. Essentially no obvious pathology. ASSESSMENT/PLAN: An 81-year-old female with partial small bowel obstruction. 1. Partial small bowel obstruction. At this time, patient seems to be clinically improving. Will keep the NG tube clamped and start her on clear liquids. 2. Multiple medical comorbidities currently being managed by the hospitalist service. 3. Right middle lobe pneumonia currently on antibiotics. 4. Urinary tract infection currently on antibiotics. 5. Hemoccult-positive stool. At this time patient's hematocrit has been stable. She will need evaluation by Dr. Ainsley donaldson as an outpatient. 6. Hypokalemia. At this time it is resolved. cc: Inder Cuevas MD
[2016-12-19] MEDS: ZITHROMAX 500 MG/NS 500 MG/250 ML IVPB IV SCH (20:53)
[2016-12-20] MEDS: DUONEB (A & A) INH SCH ×7 (00:59→23:51)
--- NOTE | 2016-12-20 05:33 | PROGRESS NOTE ---
DATE: 12/20/2016 SUBJECTIVE: The patient had her NG tube clamped. Essentially no nausea. She tolerated clear liquids. OBJECTIVE: Vital Signs: Patient is currently afebrile. Her vital signs are stable. General Examination: No acute distress. HEENT: Normocephalic and atraumatic. Pupils are equal, round, and reactive to light. Mucous membranes are moist. Oropharynx benign. NG tube in place but clamped. Neck: Supple. Trachea midline. Cardiovascular: Regular rate and rhythm. Lungs: Grossly clear. Abdomen: Soft, nontender, nondistended. Extremities: Moves all extremities. Neurologic: Grossly intact. Skin: No signs of jaundice. Vascular: All extremities perfused. Laboratory: Currently pending. ASSESSMENT/PLAN: An 81-year-old, female with a partial small bowel obstruction. 1. Partial small bowel obstruction. At this time, seems to be clinically improving. If she continues to have no nausea, we will have the nurses remove her nasogastric tube later today. 2. Multiple medical comorbidities, currently being managed by the hospitalist service. 3. Right middle lobe pneumonia. Currently on antibiotics. 4. Urinary tract infection. Currently on antibiotics. 5. Hemoccult positive stool. At this time, we will defer to Dr. Schmitz for likely outpatient workup. 6. Hypokalemia. At this time, resolved. cc: Inder Cuevas MD
[2016-12-20] MEDS: DILAUDID IV PRN (05:35)
[2016-12-20 06:25] LABS: AGAP 10; BUN 14 mg/dL (8-22); CALCIUM 9.4 mg/dL (8.8-10.2); CHLORIDE 100 mmol/L (98-107); COSMO 274; MAGNESIUM 2.1 mg/dL (1.5-2.7); SODIUM 137 mmol/L (136-145); TCO2 27 mmol/L (25-35)
[2016-12-20 06:34] LABS: HEMATOCRIT 36.6 % (37.0-47.0); HEMOGLOBIN 11.9 g/dL (12.0-16.0); MCH 29.5 PG (27-31); MCHC 32.5 g/dL (33-37); MCV 90.6 FL (81-99); MPV 9.4 FL (7.4-10.4); RBC 4.04 XMIL (4.2-5.4)
[2016-12-20] MEDS: CLINIMIX E 4.25%-5% SOLUTION 1,000 ML IV SCH (07:59)
[2016-12-20] MEDS: BENTYL IM SCH (08:17)
[2016-12-20] MEDS: NAMENDA XR PO SCH (08:18)
[2016-12-20] MEDS: XANAX PO SCH ×4 (08:18→20:15)
[2016-12-20] MEDS: LEXAPRO PO SCH (08:18)
--- NOTE | 2016-12-20 08:18 | PROGRESS NOTE ---
DATE: 12/20/2016 SUBJECTIVE: The patient notes she is feeling better. Denies any current nausea. States her abdominal pain is better. PHYSICAL EXAMINATION: Vital Signs: Temperature 99, pulse 79, respiratory rate 16, BP 139/56, saturation 90-96% on 3 L. General: The patient is awake, alert. She has an NG tube in place to wall suction. She is lying in bed. She is awake, alert. She is in no respiratory distress. Neck: Supple. CV: Regular rate. Chest: Clear. Abdomen: Soft. Decreased but positive bowel sounds in all 4 quadrants. Extremities: Moves all extremities. No edema. Neurologic: She is awake, alert, oriented x3. LABS: CBC normal. CMP normal. ASSESSMENT: 1. Moderate protein calorie malnutrition. Continue total parenteral nutrition for now. 2. Hypokalemia, stable. 3. Heme-positive stools. We will continue to follow. 4. Multifocal pneumonia. She will continue on Rocephin and azithromycin. 5. Partial small bowel obstruction. She has a nasogastric tube placed, is currently clamped. Hopefully, Dr. Borges will be able to remove the nasogastric later this afternoon if she is feeling better. 6. Coronary artery disease. PLAN: As noted, hopefully remove NG and continue to advance her diet. Her blood pressures are starting to creep back up. She has not been on some of her home blood pressure medications. We will follow. cc: Ryan Sr MD
[2016-12-20] MEDS: IMDUR PO SCH (08:24)
[2016-12-20] MEDS: LIPOSYN 20% 500 ML IV SCH (12:48)
[2016-12-20] MEDS: ROCEPHIN 1 GM/NS 1 GM/50 ML IVPB IV SCH (12:48)
[2016-12-20] MEDS: SODIUM CHLORIDE 0.9% INJ SCH (16:48)
[2016-12-20] MEDS: PROTONIX IV SCH (16:48)
[2016-12-20] MEDS: ZITHROMAX 500 MG/NS 500 MG/250 ML IVPB IV SCH (20:15)
[2016-12-20] MEDS ORDERED: SEROQUEL PO SCH (21:00)
[2016-12-21] MEDS: CLINIMIX E 4.25%-5% SOLUTION 1,000 ML IV SCH (03:53)
[2016-12-21] MEDS: DUONEB (A & A) INH SCH ×5 (04:06→20:53)
--- NOTE | 2016-12-21 05:35 | PROGRESS NOTE ---
DATE: 12/21/2016 SUBJECTIVE: Patient had her NG tube removed. She is a little drowsy this morning but apparently has restarted her Seroquel. No other major issues. OBJECTIVE: Vital Signs: Patient is currently afebrile. Her vital signs are stable. General: No acute distress but resting. HEENT: Normocephalic, atraumatic. Pupils equal, round, reactive to light. Mucous membranes moist. Oropharynx benign. Neck: Supple. Trachea midline. Cardiovascular: Regular rate and rhythm. Lungs: Grossly clear. Abdomen: Soft, nontender, nondistended. Neurologic: Sedated and sleeping. Skin: No signs of jaundice. Vascular: All extremities perfused. ASSESSMENT/PLAN: An 81-year-old, female, a partial small-bowel obstruction. 1. Partial small-bowel obstruction. At this time, clinically improving. I will advance her full liquid diet. 2. Multiple medical comorbidities currently being managed by the hospitalist service. 3. Right middle lobe pneumonia, currently on antibiotics. 4. Urinary tract infection, currently on antibiotics. 5. Hemoccult-positive stool. At this time, we will defer to Dr. Schmitz for outpatient workup. 6. Neurologic status. At this time, patient did restart her Seroquel. This may be contributing to her overall current neurologic state. If it does not improve, may need to hold her Seroquel and consider CT scan. We will defer to the hospitalist. cc: Inder Cuevas MD
[2016-12-21 06:20] LABS: HEMATOCRIT 31.6 % (37.0-47.0); HEMOGLOBIN 10.3 g/dL (12.0-16.0); MCH 29.5 PG (27-31); MCHC 32.6 g/dL (33-37); MCV 90.5 FL (81-99); MPV 8.8 FL (7.4-10.4); RBC 3.49 XMIL (4.2-5.4)
[2016-12-21 06:34] LABS: AGAP 8; BUN 12 mg/dL (8-22); CALCIUM 8.9 mg/dL (8.8-10.2); CHLORIDE 106 mmol/L (98-107); COSMO 281; POTASSIUM 3.6 mmol/L (3.5-5.1); SODIUM 141 mmol/L (136-145); TCO2 27 mmol/L (25-35)
--- NOTE | 2016-12-21 07:50 | PROGRESS NOTE ---
DATE: 12/21/2016 SUBJECTIVE: The patient is very somnolent and sleepy this morning. She is arousable but does not stay awake for any length of time. Family in the room notes that she was feeling better last night. Notes that her nausea and vomiting have all but resolved. PHYSICAL EXAMINATION: Temperature 98, pulse 64, respiratory 14, BP 145/53. Saturation 96% on 3 L. General: The patient is somnolent but arousable. Neck supple. CV: Regular rate. Chest clear and unlabored. Abdomen soft. Positive bowel sounds. Nontender. No masses. Extremities: Moves all extremities. Neurologic: No changes. LABORATORY DATA: CBC normal with a hemoglobin and hematocrit of 10 and 31. CMP normal. ASSESSMENT: 1. Moderate protein calorie malnutrition. 2. Somnolence most likely secondary to Seroquel. We will hold this. The patient takes Seroquel at home, but this certainly seems to be too much at this point. 3. Multifocal pneumonia. Continue azithromycin and Rocephin IV. Continues to improve. We will check a chest x-ray today and follow. cc: Ryan Sr MD
[2016-12-21] MEDS ORDERED: PRINIVIL PO SCH (09:00)
[2016-12-21] MEDS: XANAX PO SCH ×4 (09:31→20:08)
[2016-12-21] MEDS: NAMENDA XR PO SCH (09:31)
[2016-12-21] MEDS: LEXAPRO PO SCH (09:31)
[2016-12-21] MEDS: IMDUR PO SCH (09:32)
[2016-12-21] MEDS: ROCEPHIN 1 GM/NS 1 GM/50 ML IVPB IV SCH (11:02)
--- NOTE | 2016-12-21 12:10 | Diag Imaging Result Doc PS360 ---
EXAM: CHEST-2 VIEWS HISTORY: hypoxia COMPARISON: 12/18/2016. FINDINGS: The lungs are well-expanded. The heart is not enlarged. The pulmonary vessels are small. Increased AP diameter to the chest. There is a small left effusion. Interval decrease in the bilateral infiltrates. No change in the right-sided PICC line. Interval removal of the nasogastric tube. There is a calcified granuloma in the mid left lung. IMPRESSION: Interval improvement. Electronically signed by Collin Arias 12/21/2016 12:07 PM
[2016-12-21] MEDS: LIPOSYN 20% 500 ML IV SCH (13:36)
[2016-12-21] MEDS: SODIUM CHLORIDE 0.9% INJ SCH (13:36)
[2016-12-21] MEDS: PROTONIX IV SCH (13:37)
--- NOTE | 2016-12-21 16:00 | PROGRESS NOTE ---
DATE: 12/21/2016 ADDENDUM: 1. Chronic obstructive pulmonary disease, stable 2. Coronary artery disease, stable. 3. Alzheimer disease, likely contributing to her current somnolence this morning. 4. Heme-positive stool. She has had no further episodes in the hospital. 5. Hypertension. Blood pressure is mildly elevated. We will begin restarting some of her blood pressure medication, although we will decrease the dose to lisinopril 10 mg only and will follow. cc: Ryan Sr MD
[2016-12-21] MEDS: DILAUDID IV PRN (20:08)
[2016-12-21] MEDS: ZITHROMAX 500 MG/NS 500 MG/250 ML IVPB IV SCH (20:09)
[2016-12-22] MEDS: DILAUDID IV PRN (00:31)
--- NOTE | 2016-12-22 05:46 | PROGRESS NOTE ---
DATE: 12/22/2016 SUBJECTIVE: The patient is more awake this morning. She did pull her PICC line out early this morning, and it was documented in the nurse's note, which I reviewed. OBJECTIVE: Vital Signs: Patient is currently afebrile. Her vital signs are stable. General: No acute distress. HEENT: Normocephalic, atraumatic. Pupils equal, round, reactive to light. Mucous membranes moist. Oropharynx benign. Neck: Supple. Trachea midline. Cardiovascular: Regular rate and rhythm. Lungs: Grossly clear. Abdomen: Soft, nontender, nondistended. Neurologic: More awake. Skin: No signs of jaundice. Vascular: All extremities perfused. LABORATORY STUDIES: None. IMAGING STUDIES: Chest x-ray from yesterday reviewed. ASSESSMENT AND PLAN: An 81-year-old female with partial small bowel obstruction. 1. Partial small bowel obstruction. At this time, I think she is clinically resolved. I have advanced her to a soft mechanical diet. I will be available if needed. 2. Multiple medical comorbidities. Currently being managed by the Hospitalist service. 3. Right middle lobe pneumonia. Currently on antibiotics. 4. Urinary tract infection. Currently on antibiotics. 5. Hemoccult positive stool. At this time, we will defer to Dr. Schmitz for outpatient workup. 6. Neurologic status at this time. She is more alert. It is likely that it is related to her Seroquel intake. cc: Inder Cuevas MD
[2016-12-22] MEDS: CLINIMIX E 4.25%-5% SOLUTION 1,000 ML IV SCH ×2 (07:45→17:43)
--- NOTE | 2016-12-22 08:13 | PROGRESS NOTE ---
DATE: 12/22/2016 SUBJECTIVE: The patient is much more awake. She has no complaints this morning. States that she wants to start getting out of bed. Denies any nausea, vomiting. Denies any GI or issues otherwise. OBJECTIVE: Vital Signs: Reviewed. Temperature 98 degrees, pulse 80, respiratory rate 18, BP 155/71, saturation 95% on 3 L. General: Patient is awake, alert. She is currently in no respiratory distress. Neck: Supple. CV: Regular rate. Chest: Clear. Abdomen: Soft. Positive bowel sounds. Nontender. Nondistended. Extremities: Moves all extremities. Neurologic: No changes. LABS: Pending. ASSESSMENT: 1. Acute hypoxic respiratory failure, improving, secondary to pneumonia. Still on 3 L. We will wean as possible. 2. Partial small bowel obstruction, resolved. 3. Right middle lobe pneumonia. Continue antibiotics. 4. Heme-positive stool. She has had no further heme-positive stools while in the hospital. Will continue to follow. She will need outpatient workup for this. 5. Alzheimer's dementia. We will continue medications. 6. Urinary tract infection. 7. Hypertension. Blood pressure remains elevated. His NG tube has been removed. We will slowly start replacing her home medications. PLAN: We will advance diet as per Dr. Cuevas's recommendation, a GI soft. We will continue physical therapy. Hopefully home in the next 1-2 days. cc: Ryan Sr MD
[2016-12-22] MEDS: DUONEB (A & A) INH SCH ×5 (08:30→23:15)
[2016-12-22] MEDS: EXELON PO SCH ×2 (09:03→20:59)
[2016-12-22] MEDS: PRINIVIL PO SCH (09:03)
[2016-12-22] MEDS: LEXAPRO PO SCH (09:03)
[2016-12-22] MEDS: IMDUR PO SCH (09:03)
[2016-12-22] MEDS: NAMENDA XR PO SCH (09:03)
[2016-12-22] MEDS: XANAX PO SCH ×4 (09:04→20:59)
[2016-12-22] MEDS: ULTRAM PO PRN ×2 (11:45→17:40)
[2016-12-22] MEDS: PROTONIX IV SCH (14:07)
[2016-12-22] MEDS: LIPOSYN 20% 500 ML IV SCH (17:44)
[2016-12-22] MEDS: ROCEPHIN 1 GM/NS 1 GM/50 ML IVPB IV SCH (17:44)
[2016-12-22] MEDS: COREG PO SCH (20:59)
[2016-12-22] MEDS: ZITHROMAX 500 MG/NS 500 MG/250 ML IVPB IV SCH (21:02)
[2016-12-23] MEDS: DUONEB (A & A) INH SCH ×3 (03:28→11:33)
[2016-12-23] MEDS: CLINIMIX E 4.25%-5% SOLUTION 1,000 ML IV SCH (04:34)
[2016-12-23] MEDS: IMDUR PO SCH (08:47)
[2016-12-23] MEDS: COREG PO SCH (08:47)
[2016-12-23] MEDS: LEXAPRO PO SCH (08:47)
[2016-12-23] MEDS: XANAX PO SCH (08:48)
[2016-12-23] MEDS: NAMENDA XR PO SCH (08:49)
[2016-12-23] MEDS: EXELON PO SCH (08:49)
[2016-12-23] MEDS: PRINIVIL PO SCH (08:50)
[2016-12-23] MEDS ORDERED: DITROPAN XL PO SCH (09:00)
[2016-12-23] MEDS ORDERED: NORVASC PO SCH (09:00)
[2016-12-23 11:27] VITALS: BP 146/69
--- NOTE | 2016-12-24 11:52 | DISCHARGE SUMMARY ---
ADMISSION DATE: 12/12/2016 DISCHARGE DATE: 12/23/2016 DIAGNOSES: 1. Acute hypoxic respiratory failure secondary to pneumonia, improving. 2. Right middle lobe pneumonia. 3. Partial small bowel obstruction, resolved. 4. Hypertension. 5. Heme positive stool x1. 6. Urinary tract infection. 7. Chronic obstructive pulmonary disease. CONSULTATIONS: Dr. Inder Cuevas, General Surgery DIAGNOSTICS: On 12/14/2016, CT of the abdomen revealed multiple distended loops of small bowel with air-fluid levels worrisome for small bowel obstruction. Abdominal x-rays on 12/15/2016, 12/16/2016, 12/17/2016, 12/18/2016 and 12/19/2016 reveal no definite obstruction with less distention. On 12/12/2016, chest x-rays revealed right sided pneumonia with clearing on 12/21/2016. HOSPITAL COURSE: Ms. Aldridge presented to the emergency room complaining of shortness of breath. She was evaluated at a walk-in clinic 2 days prior and had a normal chest x-ray, and she was discharged home. Over the 48 hours following, she developed a fever, shortness of breath, and confusion. She was found to have right middle lobe pneumonia for which she has received 10 days of antibiotic coverage. Blood cultures revealed no growth after 48 hours. She did improve respiratory barbosa. Two days into hospitalization, she developed multiple bowel movements with a distended abdomen and nausea. She was found to have a bowel obstruction with no obvious transition point, although she did have dilated proximal bowel. NG tube was placed to allow for bowel rest. Luckily, she was able to have her NG tube discontinued on 12/20/2016. Her diet has slowly been advanced since, and she is tolerating a GI soft diet well. She did have 1 heme- positive stool while in the hospital. She has had no further. Hemoglobin and hematocrit have been stable at 10-13 and 32-36 respectively. She will follow up with gastroenterology for an outpatient workup. Urine culture revealed mixed maggy. Today, the patient is doing much better. She has been up in the room, sitting up, eating, and she feels like she is ready to go home. DISCHARGE PHYSICAL EXAMINATION: CARDIOVASCULAR: Regular rate and rhythm. S1 and S2 appreciated. PULMONARY: Breath sounds are clear with no increased work of breathing noted. GASTROINTESTINAL: Abdomen is soft, nontender, nondistended with bowel sounds in all 4 quadrants. EXTREMITIES: No clubbing, cyanosis, or edema. Pulses are palpable x4. Calves are nontender. DISCHARGE MEDICATIONS: 1. Tramadol 50 mg p.o. t.i.d. p.r.n. 2. Carvedilol 3.125 p.o. b.i.d. 3. Xanax 0.25 p.o. 4 times a day. 4. Nexium 40 mg daily. 5. Lexapro 10 daily. 6. Norvasc 10 mg daily. 7. Oxybutynin ER 15 mg daily. 8. Namenda XR 21 mg daily. 9. Prinzide 20/12.5 daily. 10. Isosorbide mononitrate ER 30 mg daily. 11. Pravastatin 40 mg at bedtime. 12. MiraLAX 17 g daily. 13. Omnicef 300 mg p.o. b.i.d. for 4 days. 14. Zithromax 500 mg p.o. daily for 4 days. DISCHARGE VITAL SIGNS: Blood pressure is 149/69 with a heart rate of 79, respirations 16, temperature 98 degrees oral with room air saturations of 94%-97% over the last 24 hours. DISCHARGE ACTIVITY: As tolerated. DISCHARGE DIET: GI soft with Ensure 3-4 times a day. FOLLOWUP: 1. She needs to follow up with her primary care physician in the next 1-[address] Rafi Schmitz, gastroenterology, in the next 2-3 weeks for evaluation of heme-positive stool. 3. Home health and home PT have been arranged through [facility]. She is being discharged home in stable condition with family members. TIME SPENT: This is a greater than 30 minute discharge. Dictated by MONIK Bond for Ryan Sr MD cc: MONIK Bond MD
--- NOTE | 2017-01-19 16:33 | PROVIDER DOCUMENTATION ---
This chart was entered by Moira Martin, acting as scribe for Yves Sanchez MD. HPI-General Adult - General Chief Complaint: Fever Stated Complaint: Fever/constipation/SOB Time Seen by Provider: 12/12/16 09:32 Source: patient, family Allergies/Adverse Reactions: Patient Allergies Allergy/AdvReac Type Severity Reaction Status Date / Time morphine AdvReac Unknown Verified 12/12/16 09:18 Home Medications: Home Medication List Medication Instructions Recorded Confirmed Last Taken Type Carvedilol 3.125 mg PO BID 11/12/14 12/12/16 08/12/16 History Oxybutynin Chloride [Oxybutynin 15 mg PO DAILY 11/12/14 12/12/16 08/12/16 History Chloride ER] Pravastatin Sodium 40 mg PO QHS 11/12/14 12/12/16 1 Day Ago History Isosorbide Mononitrate [Isosorbide 30 mg PO DAILY 11/21/14 12/12/16 08/12/16 History Mononitrate ER] Memantine HCl [Namenda Xr] 21 mg PO DAILY 05/18/15 12/12/16 08/12/16 History Rivastigmine Tartrate 1.5 mg PO BID 08/11/15 12/12/16 08/12/16 History [Rivastigmine] Polyethylene Glycol 3350 [Miralax] 17 gm PO DAILY #30 powd.pack 08/14/1510/27/15 07:00 Rx Amlodipine [Norvasc] 10 mg PO DAILY #30 tablet 11/02/15 12/12/16 08/12/16 Rx LISINOpril/HCTZ [Prinzide 1 each PO DAILY #30 tablet 11/02/15 12/12/16 08/12/16 Rx 20/12.5MG] Escitalopram [Lexapro] 10 mg PO DAILY 08/12/16 12/12/16 08/12/16 History Esomeprazole [Nexium] 40 mg PO DAILY 08/12/16 12/12/16 08/12/16 History Alprazolam [Xanax] 0.25 mg PO 4XDAY 12/12/16 12/12/16 Unknown History Tramadol HCl 50 mg PO TID PRN 12/12/16 12/12/16 Unknown History Azithromycin [Zithromax] 500 mg PO DAILY #4 tablet 12/23/16 Unknown Rx CefDINIR [Omnicef] 300 mg PO BID #8 capsule 12/23/16 Unknown Rx - History of Present Illness -Gen Adult Nature of Presenting Problems: pt is a 81 year old f present to the ER with cc of a fever x2-3 days. Daughters at bedside giving history states she went to [facility] 2 days ago and they took an x-ray but did not see anything. She has been increasing in SOB and having some really bad congestion. Daughters states pt fell last week and bumped her head and bruised her knees really bad. Pt daughter states she ran a fever of 101.5 last night and wouldn't get up and walk around like she normally would. denies chest pain, vomiting or diarrhea. Location of Pain/Injury: reports: none Pain Radiation: reports: no radiation Quality of Pain: reports: none Severity: reports: mild Onset/Duration: reports: 3 days ago Timing: reports: still present Context/Activities at Onset: reports: none Modifying Factors: improves with: nothing Associated Symptoms: reports: fever/chills, shortness of breath Similar Symptoms Previously?: No Recently seen or treated by another doctor?: No Review of Systems - Adult - REVIEW OF SYSTEMS - ADULT Constitutional: reports: fever, fatique. denies: weight gain, weight loss Eyes: denies: blurred vision, double vision, eye pain Ears, Nose, Mouth & Throat: denies: epistaxis, nose pain, loose teeth Cardiovascular: reports: no symptoms reported Respiratory: reports: shortness of breath, other (Congestion) Gastrointestinal: reports: no symptoms reported Genitourinary: reports: no symptoms reported Musculoskeletal: reports: no symptoms reported Integumentary: reports: no symptoms reported Neurological: reports: no symptoms reported Psychiatric: reports: no symptoms reported Endocrine: reports: no symptoms reported Hematologic/Lymphatic: reports: no symptoms reported Allergic/Immunologic: reports: no symptoms reported All Other Systems: Reviewed and Negative Past History - Adult - PAST MEDICAL HISTORY-ADULT Review of Records: reports: Old Records Reviewed, Nursing Assessment Review Major Childhood Illnesses: reports: denies history Cardiovascular: reports: CAD, HTN, hyperlipidemia, PR (x2) Respiratory: reports: COPD Gastrointestinal: reports: GERD Obstetrical/Gynecological: reports: denies history Genitourinary: reports: denies history Musculoskeletal: reports: denies history Neurological: reports: Alzheimer's, dementia Endocrine/Immune: reports: denies history Other Conditions: reports: denies history - PRIOR SURGERIES/PROCEDURES Surgical/Procedure History: reports: cardiac stent (x 2), hysterectomy, hernia repair - IMMUNIZATION STATUS Childhood Immunizations: See Nurse Assessment Flu Vaccine: See Nurse Assessment - FAMILY HISTORY Family History: reviewed, not pertinent Physical Exam-General - PHYSICAL EXAM-ADULT Initial Vital Signs Reviewed: Yes - CONSTITUTIONAL General Appearance: mild distress - EYES Eyes: PERRL/EOMI, pink conjunctivae - HEAD, EARS, NOSE, MOUTH & THROAT HENMT: moist mucous membranes, normal ENT inspection, TMs normal, pharynx normal - NECK Neck: non-tender, full range of motion - RESPIRATORY Respiratory: chest non-tender, rales (Bilateral bases) - CARDIOVASCULAR Cardiovascular: normal peripheral pulses, regular rate, rhythm, no edema, no gallop, no JVD, no murmur - GASTROINTESTINAL (ABDOMEN) Abdominal Exam: normal bowel sounds, non tender, soft - MUSCULOSKELETAL Extremity: normal range of motion, non-tender, normal gait - SKIN Integumentary: normal color, normal turgor, warm/dry - NEUROLOGIC Neurologic: grossly normal, no motor/sensory deficits - PSYCHIATRIC Psych/Mental Status: normal mood/affect, normal thought content, normal thought process, oriented x 3 Progress - PLAN OF CARE/RESULTS Progress/Plan/Lab Results: Vital Signs - 8 hr 12/12/16 09:11 12/12/16 09:18 Temperature 100.5 F H Pulse Rate 81 Respiratory Rate 16 Blood Pressure 152/73 O2 Sat by Pulse Oximetry 85 L 90 L Orders Category Date Time Status CHEST-2 VIEWS [RAD] Stat Exams 12/12/16 09:[address] Stat Lab 12/12/16 09:24 Received ua [URINALYSIS PL W/POSS RFLX CULT] [URINALYSIS] Stat Lab 12/12/16 09:22 Uncollected Pulse Oximetry Stat Oth 12/12/16 09:20 Active Result Diagrams: 12/21/16 05:50 12/21/16 05:50 - EKG 1 Time of EKG reading by physician:: 10:26 EKG Read and Signed by:: Yves Sanchez EKG Interpretation (*Must complete 3 of following elements*): Normal (Sinus rhythm with occ PVC's, otherwise normal ECG) Rate: 81 Rhythm: sinus rhythm with occ PVS's [place]: normal QRS: normal DC Interval: normal ST Wave: normal - XRAY 1 XRAY: Bilateral XRAY Study: Chest Impression: Abnormal (Small infiltrate in the mid right lung. Emphysema) - CONSULTS/PCP/HOSPITALIST Notification #1 *Consult/PCP/Hospitalist*: Dr. lorenzo Time Discussed: 12:29 Reason/Comments: Admission Consult Disposition: Admit Departure - Departure Date of Disposition Decision: 12/23/16 Time of Disposition Decision: 00:40 DIAGNOSIS: Pneumonia Disposition: ADMITTED INPATIENT 09 Certified Medical Emergency: Emergent Condition: Good - Critical Care Note This patient required my direct & personal management of CC.: No This chart was documented by the indicated scribe, (oMira Martin) and accurately reflects the services I performed and decisions made by me, Yves Sanchez MD, as attested by the provider's signature.
== END 2016-12-23 12:40 | disposition home or self-care (01) ==
LOC: P.ED 09:10 → P.ICU 13:43 → SUATTDRO 13:43 → P.MEDSURG 12-13 16:17
PROVIDERS: ATTEND Family Medicine